=== PATIENT | female | born 1950 | race Caucasian/White ===

== ENCOUNTER 2017-11-21 15:48 | Outpatient (REF) | payer MEDICARE, OTHER, SELFPAY | END 2017-11-21 16:08 | LOC: NCHCN 15:48 | PROVIDERS: PCP Family Medicine; Visit Provider Nurse Practitioner Family | DX: R53.83 Other fatigue (principal) | CPT/HCPCS: 87077; 87086; 87186 ==

== ENCOUNTER 2018-02-03 16:44 | Outpatient (REF) | payer MEDICARE, OTHER, SELFPAY ==
[2018-02-03 23:06] LABS: TSH (W/Ref FT4) 2.78 uIU/mL (0.358-3.74)
== END 2018-02-03 17:04 ==
LOC: NCHCN 16:44
PROVIDERS: PCP Family Medicine; Visit Provider Nurse Practitioner Family
DX: E03.9 Hypothyroidism, unspecified (principal)
CPT/HCPCS: 84443

== ENCOUNTER 2018-06-11 18:52 | Outpatient (REF) | payer MEDICARE, OTHER, SELFPAY ==
[2018-06-11 22:02] LABS: HCT 38.6 % (36.0-46.0); HGB 12.8 g/dL (12.0-15.5); Mean Corp. HGB Concentration 33.2 g/dL (32.0-36.0); Mean Corpuscular Hemoglobin 28.8 pg (27.0-33.0); Mean Corpuscular Volume 86.9 fL (80-95); Platelet Count 251 x1000/uL (130-400); RBC 4.44 m/cumm (4.00-5.20); RBC Distribution Width 13.3 % (11.7-14.6); White Blood Cell Count 6.55 k/cumm (4.4-10.8)
[2018-06-11 22:08] LABS: BUN 41 mg/dL (7-18); CREATININE 1.84 mg/dL (0.55-1.02); Calcium 10.3 mg/dL (8.5-10.1); Chloride 102 mmol/L (98-107); Estimated GFR 27.12 (mL/min/1.73m2); Glucose 142 mg/dL (70-100); Potassium 4.4 mmol/L (3.5-5.1); Sodium 140 mmol/L (136-145)
== END 2018-06-11 19:12 ==
LOC: NCHCN 18:52
PROVIDERS: PCP Family Medicine; Visit Provider Family Medicine
DX: R53.83 Other fatigue (principal); I10 Essential (primary) hypertension
CPT/HCPCS: 80048; 85027

== ENCOUNTER 2019-01-22 22:07 | Outpatient (REF) | payer MEDICARE, OTHER, SELFPAY ==
[2019-01-22 22:56] LABS: COMMENT (LAB VIEW ONLY) 96.25 mg/dL; Microalb ug/mg Crea 10.3 ug/mg Cr
== END 2019-01-22 22:27 ==
LOC: NCHCN 22:07
PROVIDERS: PCP Family Medicine; Visit Provider Family Medicine
DX: E11.9 Type 2 diabetes mellitus without complications (principal)
CPT/HCPCS: 82043; 82570

== ENCOUNTER 2019-02-23 12:00 | Outpatient (REF) | payer MEDICARE, OTHER, SELFPAY ==
[2019-02-23 21:32] LABS: Iron 105 ug/dL (50-170)
[2019-02-23 22:01] LABS: ALT 23 U/L (14-59); AST 26 U/L (15-37); Albumin 3.8 g/dL (3.4-5.0); Alkaline Phosphatase 64 U/L (46-116); Anion Gap 11.4 mmol/L (3-11); BUN 44 mg/dL (7-18); Bilirubin, Total 0.5 mg/dL (0.2-1.0); CO2 27.6 mmol/L (21.0-32.0); CREATININE 2.09 mg/dL (0.55-1.02); Calcium 9.9 mg/dL (8.5-10.1); Chloride 105 mmol/L (98-107); Estimated GFR 23.41 (mL/min/1.73m2); Ferritin 144 ng/mL (8-252); Glucose 107 mg/dL (74-106); Magnesium 1.3 mg/dL (1.8-2.4); Potassium 4.7 mmol/L (3.5-5.1); Sodium 144 mmol/L (136-145); TSH (W/Ref FT4) 2.75 uIU/mL (0.36-3.74); Total Protein 7.2 g/dL (6.4-8.2)
== END 2019-02-23 12:20 ==
LOC: NCHCN 12:00
PROVIDERS: PCP Family Medicine; Visit Provider Family Medicine
DX: N18.4 Chronic kidney disease, stage 4 (severe) (principal); E66.01 Morbid (severe) obesity due to excess calories; R25.2 Cramp and spasm; M17.0 Bilateral primary osteoarthritis of knee; E83.52 Hypercalcemia; E03.9 Hypothyroidism, unspecified
CPT/HCPCS: 80053; 82728; 83540; 83735; 84443

== ENCOUNTER 2019-03-16 22:40 | Outpatient (REF) | payer MEDICARE, OTHER, SELFPAY ==
[2019-03-16 23:05] LABS: Magnesium 1.4 mg/dL (1.8-2.4)
== END 2019-03-16 23:00 ==
LOC: NCHCN 22:40
PROVIDERS: PCP Family Medicine; Visit Provider Family Medicine
DX: E83.42 Hypomagnesemia (principal)
CPT/HCPCS: 83735

== ENCOUNTER 2019-04-22 12:22 | Outpatient (REF) | payer MEDICARE, OTHER, SELFPAY | END 2019-04-22 12:42 | LOC: NCHCN 12:22 | PROVIDERS: PCP Family Medicine; Visit Provider Family Medicine | DX: E83.42 Hypomagnesemia (principal) | CPT/HCPCS: 83735 ==

== ENCOUNTER 2019-09-15 20:41 | Outpatient (REF) | payer MEDICARE, OTHER, SELFPAY ==
[2019-09-15 21:18] LABS: Anion Gap 8.3 mmol/L (3-11); BUN 48 mg/dL (7-18); CO2 28.7 mmol/L (21.0-32.0); CREATININE 2.02 mg/dL (0.55-1.02); Calcium 9.4 mg/dL (8.5-10.1); Chloride 105 mmol/L (98-107); Estimated GFR 24.28 (mL/min/1.73m2); Glucose 184 mg/dL (74-106); Magnesium 1.5 mg/dL (1.8-2.4); Potassium 4.9 mmol/L (3.5-5.1); Sodium 142 mmol/L (136-145)
== END 2019-09-15 21:01 ==
LOC: NCHCN 20:41
PROVIDERS: PCP Family Medicine; Visit Provider Family Medicine
DX: E83.42 Hypomagnesemia (principal); E11.9 Type 2 diabetes mellitus without complications
CPT/HCPCS: 80048; 83735

== ENCOUNTER 2019-12-15 12:37 | Outpatient (REF) | payer MEDICARE, OTHER, SELFPAY ==
[2019-12-15 22:06] LABS: Magnesium 1.6 mg/dL (1.8-2.4); PHOSPHORUS 4.1 mg/dL (2.6-4.7); TSH 2.18 uIU/mL (0.36-3.74)
== END 2019-12-15 12:57 ==
LOC: NCHCN 12:37
PROVIDERS: PCP Family Medicine; Visit Provider Family Medicine
DX: E11.8 Type 2 diabetes mellitus with unspecified complications (principal); E83.42 Hypomagnesemia; N18.4 Chronic kidney disease, stage 4 (severe); E03.9 Hypothyroidism, unspecified
CPT/HCPCS: 83735; 84100; 84443

== ENCOUNTER 2020-03-15 19:10 | Outpatient (REF) | payer MEDICARE, OTHER, SELFPAY ==
[2020-03-15 22:00] LABS: COMMENT (LAB VIEW ONLY) 161.83 mg/dL; Microalb ug/mg Crea 4.1 ug/mg Cr
== END 2020-03-15 19:30 ==
LOC: NCHCN 19:10
PROVIDERS: PCP Family Medicine; Visit Provider Family Medicine
DX: E11.8 Type 2 diabetes mellitus with unspecified complications (principal)
CPT/HCPCS: 82043; 82570

== ENCOUNTER 2020-11-01 22:21 | Outpatient (REF) | payer MEDICARE, SELFPAY ==
[2020-11-01 21:35] LABS: ALT 26 U/L (14-59); AST 25 U/L (15-37); Albumin 3.7 g/dL (3.4-5.0); Alkaline Phosphatase 73 U/L (46-116); Anion Gap 11.8 mmol/L (3-11); BUN 41 mg/dL (7-18); Bilirubin, Total 0.5 mg/dL (0.2-1.0); CO2 26.2 mmol/L (21.0-32.0); Calculated LDL 41 mg/dL (<100); Chloride 106 mmol/L (98-107); Cholesterol 116 mg/dL (<200); Estimated GFR 24.49 (mL/min/1.73m2); Glucose 82 mg/dL (74-106); HDL Cholesterol 33 mg/dL (40-60); Potassium 4.8 mmol/L (3.5-5.1); Sodium 144 mmol/L (136-145); TSH 1.59 uIU/mL (0.36-3.74); Triglyceride 211 mg/dL (<150)
== END 2020-11-01 22:22 | disposition home or self-care (01) ==
LOC: NCHCN 22:21
PROVIDERS: PCP Family Medicine; Visit Provider Family Medicine
DX: Z00.8 Encounter for other general examination (principal); E11.8 Type 2 diabetes mellitus with unspecified complications; E03.9 Hypothyroidism, unspecified; E83.42 Hypomagnesemia; E78.5 Hyperlipidemia, unspecified
CPT/HCPCS: 80053; 80061; 84443

== ENCOUNTER 2021-04-28 16:40 | Outpatient (REF) | payer MEDICARE, OTHER, SELFPAY ==
[2021-04-28 21:49] LABS: Anion Gap 12.4 mmol/L (3-11); BUN 45 mg/dL (7-18); CO2 22.6 mmol/L (21.0-32.0); CREATININE 2.7 mg/dL (0.55-1.02); Calcium 9.6 mg/dL (8.5-10.1); Chloride 100 mmol/L (98-107); Estimated GFR 17.27 (mL/min/1.73m2); Glucose 235 mg/dL (74-106); Potassium 5.4 mmol/L (3.5-5.1); Sodium 135 mmol/L (136-145)
== END 2021-04-28 16:41 | disposition home or self-care (01) ==
LOC: NCHCN 16:40
PROVIDERS: PCP Family Medicine; Visit Provider Nurse Practitioner Family
DX: E11.8 Type 2 diabetes mellitus with unspecified complications (principal)
CPT/HCPCS: 80048

== ENCOUNTER 2021-08-01 18:45 | Outpatient (REF) | payer MEDICARE, OTHER, SELFPAY ==
[2021-08-01 22:34] LABS: COMMENT (LAB VIEW ONLY) 125.61 mg/dL; Microalb ug/mg Crea 4.9 ug/mg Cr
== END 2021-08-01 18:46 | disposition home or self-care (01) ==
LOC: NCHCN 18:45
PROVIDERS: PCP Family Medicine; Visit Provider Family Medicine
DX: E11.8 Type 2 diabetes mellitus with unspecified complications (principal)
CPT/HCPCS: 82043; 82570

== ENCOUNTER 2021-09-22 18:22 | Outpatient (REF) | payer MEDICARE, OTHER, SELFPAY ==
[2021-09-22 17:49] LABS: BUN 43 mg/dL (7-18); CREATININE 2.1 mg/dL (0.55-1.02); Calcium 9.7 mg/dL (8.5-10.1); Calculated LDL 59 mg/dL (<100); Chloride 104 mmol/L (98-107); Cholesterol 133 mg/dL (<200); Estimated GFR 23.09 (mL/min/1.73m2); Glucose 114 mg/dL (74-106); HDL Cholesterol 37 mg/dL (40-60); Potassium 4.7 mmol/L (3.5-5.1); Sodium 141 mmol/L (136-145); TSH (W/Ref FT4) 2.77 uIU/mL (0.36-3.74); Triglyceride 189 mg/dL (<150); Vitamin B12 437 pg/mL (193-986)
[2021-09-25 06:01] LABS: Vitamin D 25 Total 35.3 ng/mL (30-100)
== END 2021-09-22 18:23 | disposition home or self-care (01) ==
LOC: LBN 18:22
PROVIDERS: PCP Family Medicine; Visit Provider Nurse Practitioner Family
DX: E11.65 Type 2 diabetes mellitus with hyperglycemia (principal); N18.4 Chronic kidney disease, stage 4 (severe); E11.22 Type 2 diabetes mellitus with diabetic chronic kidney disease; E56.9 Vitamin deficiency, unspecified
CPT/HCPCS: 80048; 80061; 82306; 82607; 84443

== ENCOUNTER 2022-02-02 15:10 | Outpatient (REF) | payer MEDICARE, OTHER, SELFPAY ==
[2022-02-02 15:58] LABS: HCT 36.2 % (36.0-46.0); HGB 11.8 g/dL (11.2-15.7); MCH 29.2 pg (27.0-33.0); MCHC 32.6 % (32.0-36.0); MCV 90 fL (80-95); MPV 10.9 fL (8.0-11.0); Platelet Count 220 10^3/uL (130-400); RBC 4.04 10^6/uL (3.93-5.22); RDW 13.6 % (11.7-14.6); WBC 5.81 10^3/uL (4.4-10.8)
[2022-02-02 17:05] LABS: ALT 25 U/L (14-59); AST 31 U/L (15-37); Albumin 3.6 g/dL (3.4-5.0); Alkaline Phosphatase 85 U/L (46-116); Anion Gap 8.4 mmol/L (3-11); BUN 41 mg/dL (7-18); Bilirubin, Total 0.6 mg/dL (0.2-1.0); CO2 28.6 mmol/L (21.0-32.0); COMMENT (LAB VIEW ONLY) 139.92 mg/dL; Calcium 9.5 mg/dL (8.5-10.1); Calculated LDL 54 mg/dL (<100); Chloride 104 mmol/L (98-107); Cholesterol 132 mg/dL (<200); Estimated GFR 25.89 (mL/min/1.73m2); Glucose 179 mg/dL (74-106); HDL Cholesterol 44 mg/dL (40-60); Potassium 4.1 mmol/L (3.5-5.1); Sodium 141 mmol/L (136-145); Total Protein 7.5 g/dL (6.4-8.2); Triglyceride 174 mg/dL (<150)
[2022-02-02 17:24] LABS: PHOSPHORUS 4.2 mg/dL (2.6-4.7)
[2022-02-05 08:35] LABS: Parathyroid Hormone,Intact 26 pg/mL (19-88)
== END 2022-02-02 15:11 | disposition home or self-care (01) ==
LOC: LBN 15:10
PROVIDERS: PCP Family Medicine; Visit Provider Nurse Practitioner Family
DX: E11.65 Type 2 diabetes mellitus with hyperglycemia (principal); N18.32 Chronic kidney disease, stage 3b; E11.21 Type 2 diabetes mellitus with diabetic nephropathy
CPT/HCPCS: 80053; 80061; 80069; 85027; 82043; 82570; 83970

== ENCOUNTER 2022-06-29 22:03 | Outpatient (REF) | payer MEDICARE, OTHER, SELFPAY ==
[2022-06-29 22:39] LABS: Hemoglobin A1C 6.7 % (<5.7)
[2022-06-29 22:48] LABS: COMMENT (LAB VIEW ONLY) 165.47 mg/dL; Microalb ug/mg Crea 4.5 ug/mg Cr
[2022-06-29 22:49] LABS: TSH (W/Ref FT4) 1.43 uIU/mL (0.36-3.74)
== END 2022-06-29 22:04 | disposition home or self-care (01) ==
LOC: NCHCN 22:03
PROVIDERS: PCP Family Medicine; Visit Provider Family Medicine
DX: E11.65 Type 2 diabetes mellitus with hyperglycemia (principal); Z79.4 Long term (current) use of insulin; E03.9 Hypothyroidism, unspecified
CPT/HCPCS: 82043; 82570; 83036; 84443

== ENCOUNTER 2022-07-24 13:26 | Outpatient (REF) | payer MEDICARE, OTHER, SELFPAY ==
[2022-07-24 20:36] LABS: HGB 12.4 g/dL (11.2-15.7); MCH 28.9 pg (27.0-33.0); MCHC 32.6 % (32.0-36.0); MCV 89 fL (80-95); Platelet Count 263 10^3/uL (130-400); RBC 4.29 10^6/uL (3.93-5.22); RDW 13.7 % (11.7-14.6); RDW-SD 44.9 fL; WBC 7.04 10^3/uL (4.4-10.8)
[2022-07-24 20:55] LABS: Albumin 3.8 g/dL (3.4-5.0); Anion Gap 9.4 mmol/L (3-11); BUN 50 mg/dL (7-18); CO2 26.6 mmol/L (21.0-32.0); Calcium 9.4 mg/dL (8.5-10.1); Chloride 106 mmol/L (98-107); Estimated GFR 25.73 (mL/min/1.73m2); Glucose 73 mg/dL (74-106); Potassium 4.4 mmol/L (3.5-5.1); Sodium 142 mmol/L (136-145)
[2022-07-24 21:12] LABS: COMMENT (LAB VIEW ONLY) 93.07 mg/dL; PROTEIN 17.3 mg/dL; Prot/Crea Ur Ratio 0.18
[2022-07-24 21:15] LABS: Bilirubin Negative (Negative); Blood Negative (Negative); Clarity Clear (Clear); Glucose Negative (Negative); Ketones Negative (Negative); Leukocyte Esterase Small (Negative); Nitrite Negative (Negative); Specific Gravity 1.015 (1.005-1.025); Urobilinogen 0.2 mg/dL (Up to 0.2); pH 5.5 (5-8)
[2022-07-24 22:16] LABS: PHOSPHORUS 3.5 mg/dL (2.6-4.7)
[2022-07-24 23:00] LABS: Vitamin D 25 Total 43.4 ng/mL (30-100)
[2022-07-25 20:39] LABS: Parathyroid Hormone,Intact 50 pg/mL (19-88)
== END 2022-07-24 13:27 | disposition home or self-care (01) ==
LOC: LBN 13:26
PROVIDERS: PCP Family Medicine; Visit Provider Internal Medicine
DX: N18.4 Chronic kidney disease, stage 4 (severe) (principal); E11.21 Type 2 diabetes mellitus with diabetic nephropathy; E83.9 Disorder of mineral metabolism, unspecified; M89.8X8 Other specified disorders of bone, other site; Z79.899 Other long term (current) drug therapy
CPT/HCPCS: 80069; 82306; 85027; 81003; 82565; 83970; 84156

== ENCOUNTER 2022-10-10 15:47 | Outpatient (REF) | payer MEDICARE, OTHER, SELFPAY | END 2022-10-10 15:48 | disposition home or self-care (01) | LOC: NCHCN 15:47 | PROVIDERS: PCP Family Medicine; Visit Provider Family Medicine | DX: M10.9 Gout, unspecified (principal) | CPT/HCPCS: 84550 ==

== ENCOUNTER 2022-12-24 18:47 | Outpatient (REF) | payer MEDICARE, OTHER, SELFPAY | END 2022-12-24 18:48 | disposition home or self-care (01) | LOC: NCHCN 18:47 | PROVIDERS: PCP Family Medicine; Visit Provider Family Medicine | DX: M10.00 Idiopathic gout, unspecified site (principal) | CPT/HCPCS: 84550 ==

== ENCOUNTER 2023-03-01 12:23 | Outpatient (REF) | payer MEDICARE, OTHER, SELFPAY ==
--- OUTSIDE RECORDS SUMMARY | 2023-03-01 12:24 | XMS_ITS | CCD ---
Author Name Unknown Address [address] [place] [address] [id number] Organization Unknown Address [address] [place] [address] [phone] Care Team Providers Care Claims Vice President Name Role Phone RUSTAM GONG Buzz Attending Physician [phone] Vital Signs Unknown or Not Available. Allergies Allergy Code Allergy Type Reaction Status AMPICILLIN 956970 Drug allergy Nausea, Vomiting Active CILLIN FAMILY VOMITING {Clin ical monitoring unavailable} 0 Drug allergy Nausea, Vomiting Active Raw Tomato {Clinical monitor ing unavailable} 0 Drug allergy Active Procedures Unknown or Not Available. History of Immunizations Unknown or Not Available. Problems Problem Code Start Date Resolved Date Status Diabetes 09584538 Active Hypertension 99660424 Active CKD 362301259 Active Neuropathy 051564327 Active Infection of finger 931621869 Activ e Results Unknown or Not Available. Active Medications Unknown or Not Available. Medications Administered During Visit Unknown or Not Available. Encounters Encounter Diagnosis Diagnosis Code Start Date Encounter for other specified aftercare [id number] 12/18/2022 Social History Smoking Status Code Start Date End Date Never smoker 024869835 Patient Decision Aids Unknown or Not Available. Discharge Instructions You were admitted to [facility] on 12/18/2022 10:28 with a principal diagnosis of Encounter for other specified aftercare You were discharged from [facility] on 12/18/2022 15:29 Should you have any questions prior to discharge, please contact a member of your healthcare team. If you have left the hospital and have any questions, please contact your primary care physician. Chief Complaint and Reason For Visit Unknown or Not Available. Function Status Unknown or Not Available. Plan of Care Unknown or Not Available. Referral/Transition of Care Unknown or Not Available.
--- OUTSIDE RECORDS SUMMARY | 2023-03-01 12:25 | XMS_ITS | CCD ---
Author Name Unknown Address [address] [place] [address] [phone] Organization Unknown Address [address] [place] [address] [phone] Care Team Providers Care Collection Clerk Name Role Phone ISMAEL FIGUEROA Attending Physician [phone] ISMAEL FIGUEROA Rounding (Secondary) Physic gayla [phone] Vital Signs Unknown or Not Available. Allergies Allergy Code Allergy Type Reaction Status AMPICILLIN 605106 Drug allergy Nausea, Vomiting Active CILLIN FAMILY VOMITING {Clin ical monitoring unavailable} 0 Drug allergy Nausea, Vomiting Active Raw Tomato {Clinical monitor ing unavailable} 0 Drug allergy Active Procedures Unknown or Not Available. History of Immunizations Unknown or Not Available. Problems Problem Code Start Date Resolved Date Status Diabetes 36295160 Active Hypertension 92140813 Active CKD 906164796 Active Neuropathy 559794370 Active Infection of finger 962823874 Activ e Results Unknown or Not Available. Active Medications Unknown or Not Available. Medications Administered During Visit Unknown or Not Available. Encounters Encounter Diagnosis Diagnosis Code Start Date Gout [id number] 10/08/2022 Social History Smoking Status Code Start Date End Date Never smoker 603390240 Patient Decision Aids Unknown or Not Available. Discharge Instructions You were admitted to [facility] on 10/08/2022 09:58 with a principal diagnosis of Gout You were discharged from [facility] on 10/08/2022 00:00 Should you have any questions prior to [...]
--- OUTSIDE RECORDS SUMMARY | 2023-03-01 12:25 | XMS_ITS | CCD ---
Author Name Unknown Address [address] [place] [address] [id number] Organization Unknown Address [address] [place] [address] [phone] Care Team Providers Care Site Reliability Engineer Name Role Phone ALINA MELCHOR Attending Physician [phone] ALINA MELCHOR Rounding (Secondary) Physician [phone] Vital Signs Unknown or Not Available. Allergies Allergy Code Allergy Type Reaction Status AMPICILLIN 514352 Drug allergy Nausea, Vomiting Active CILLIN FAMILY VOMITING {Clin ical monitoring unavailable} 0 Drug allergy Nausea, Vomiting Active Raw Tomato {Clinical monitor ing unavailable} 0 Drug allergy Active Procedures Unknown or Not Available. History of Immunizations Unknown or Not Available. Problems Problem Code Start Date Resolved Date Status Diabetes 37174459 Active Hypertension 91382186 Active CKD 422564868 Active Neuropathy 131220423 Active Infection of finger 439324281 Activ e Results Unknown or Not Available. Active Medications Unknown or Not Available. Medications Administered During Visit Unknown or Not Available. Encounters Encounter Diagnosis Diagnosis Code Start Date Idiopathic osteoarthritis [id number] 2022 Social History Smoking Status Code Start Date End Date Never smoker 553530870 Patient Decision Aids Unknown or Not Available. Discharge Instructions You were admitted to [facility] on 10/31/2022 11:28 with a principal diagnosis of Primary osteoarthritis, right ankle and foot You were discharged from [facility] on 10/31/2022 11:28 Should you have any questions prior to [...]
--- OUTSIDE RECORDS SUMMARY | 2023-03-01 12:25 | XMS_ITS | CCD ---
Author Name Unknown Address [address] [place] [address] [id number] Organization Unknown Address [address] [place] [address] [phone] Care Team Providers Care Miniature Model Maker Name Role Phone JEFFREYLOUISE Gerber Attending Physician [phone] Vital Signs Unknown or Not Available. Allergies Allergy Code Allergy Type Reaction Status AMPICILLIN 941862 Drug allergy Nausea, Vomiting Active CILLIN FAMILY VOMITING {Clin ical monitoring unavailable} 0 Drug allergy Nausea, Vomiting Active Raw Tomato {Clinical monitor ing unavailable} 0 Drug allergy Active Procedures Unknown or Not Available. History of Immunizations Unknown or Not Available. Problems Problem Code Start Date Resolved Date Status Diabetes 94036253 Active Hypertension 77453036 Active CKD 626541970 Active Neuropathy 458484455 Active Infection of finger 027930774 Activ e Obesity 861274262 09/19/2022 Resolved Hypercholesterolemia 01310672 09/19/2022 Reso lved HTN 60676506 09/19/2022 Resolved Chronic pain syndrome 346941713 09/19/2022 Res olved Restless legs 58414451 09/19/2022 Resolved Lumbar radiculopathy 150054927 09/19/2022 Reso lved Cervicalgia 62954493 09/19/2022 Resolved Anxiety 87720012 09/19/2022 Resolved GERD 210192215 09/19/2022 Resolved Dupuytrens contracture 446677556 09/19/2022 Re solved Bilateral carpal tunnel syndrome 13952233660121788 09/19/2022 Resolved DJD 887438073 09/19/2022 Resolved Hypothyroidism 40088662 09/19/2022 Resolved Diabetes 2 27937841 09/19/2022 Resolved HLD 93390133 09/19/2022 Resolved CKD 115521450 09/19/2022 Resolved Results Unknown or Not Available. Active Medications Unknown or Not Available. Medications Administered During Visit Unknown or Not Available. Encounters Encounter Diagnosis Diagnosis Code Start Date Cellulitis of right finger [id number] 09/19 Social History Smoking Status Code Start Date End Date Never smoker 055656258 Patient Decision Aids Unknown or Not Available. Discharge Instructions You were admitted to on 09/19/2022 00:12 with a principal diagnosis of Cellulitis of right finger You were discharged from on 09/23/2022 00:13 Should you have any questions prior to [...]
--- OUTSIDE RECORDS SUMMARY | 2023-03-01 12:25 | XMS_ITS | CCD ---
Author Name Unknown Address [address] [place] [address] [id number] Organization Unknown Address [address] [place] [address] [phone] Care Team Providers Care Eating Disorder Psychologist Name Role Phone WILLIAM ZAVALA Attending Physician [phone] Vital Signs Unknown or Not Available. Allergies Allergy Code Allergy Type Reaction Status AMPICILLIN 835410 Drug allergy Nausea, Vomiting Active CILLIN FAMILY VOMITING {Clin ical monitoring unavailable} 0 Drug allergy Nausea, Vomiting Active Procedures Unknown or Not Available. History of Immunizations Unknown or Not Available. Problems Problem Code Start Date Resolved Date Status Diabetes 87992827 Active Hypertension 89354407 Active CKD 472465042 Active Neuropathy 757756114 Active Infection of finger 375926613 Activ e Obesity 392148740 09/19/2022 Resolved Hypercholesterolemia 51759111 09/19/2022 Reso lved HTN 63212453 09/19/2022 Resolved Chronic pain syndrome 132553668 09/19/2022 Res olved Restless legs 40920087 09/19/2022 Resolved Lumbar radiculopathy 627320277 09/19/2022 Reso lved Cervicalgia 70756906 09/19/2022 Resolved Anxiety 48022431 09/19/2022 Resolved GERD 629160966 09/19/2022 Resolved Dupuytrens contracture 690590639 09/19/2022 Re solved Bilateral carpal tunnel syndrome 19010424962258684 09/19/2022 Resolved DJD 830357412 09/19/2022 Resolved Hypothyroidism 05192233 09/19/2022 Resolved Diabetes 2 89244462 09/19/2022 Resolved HLD 10088205 09/19/2022 Resolved CKD 185395501 09/19/2022 Resolved Results Unknown or Not Available. Active Medications Unknown or Not Available. Medications Administered During Visit Unknown or Not Available. Encounters Encounter Diagnosis Diagnosis Code Start Date Cellulitis of right finger I38707 09/19 Social History Smoking Status Code Start Date End Date Never smoker 152248646 Patient Decision Aids Unknown or Not Available. Discharge Instructions You were admitted to [facility] on 09/19/2022 18:32 with a principal diagnosis of Cellulitis of right finger You were discharged from [facility] on 09/19/2022 23:05 Should you have any questions prior to [...]
--- OUTSIDE RECORDS SUMMARY | 2023-03-01 12:25 | XMS_ITS | CCD ---
Author Name Unknown Address [address] [place] [address] [phone] Organization Unknown Address [address] [place] [address] [phone] Care Team Providers Care Seal Skinner Name Role Phone TOMAS IBARRA Attending Physician [phone] TOMAS IBARRA Rounding (Secondary) Physician [phone] Vital Signs Unknown or Not Available. Allergies Allergy Code Allergy Type Reaction Status AMPICILLIN 454694 Drug allergy Nausea, Vomiting Active CILLIN FAMILY VOMITING {Clin ical monitoring unavailable} 0 Drug allergy Nausea, Vomiting Active Raw Tomato {Clinical monitor ing unavailable} 0 Drug allergy Active Procedures Unknown or Not Available. History of Immunizations Unknown or Not Available. Problems Problem Code Start Date Resolved Date Status Diabetes 89327029 Active Hypertension 01492867 Active CKD 323924883 Active Neuropathy 149548359 Active Infection of finger 084820044 Activ e Results Unknown or Not Available. Active Medications Unknown or Not Available. Medications Administered During Visit Unknown or Not Available. Encounters Encounter Diagnosis Diagnosis Code Start Date Follow-up orthopedic assessment 186019282 09/27/2022 Social History Smoking Status Code Start Date End Date Never smoker 081304598 Patient Decision Aids Unknown or Not Available. Discharge Instructions You were admitted to [facility] on 09/27/2022 12:55 with a principal diagnosis of Encounter for other orthopedic aftercare You were discharged from [facility] on 09/27/2022 00:00 Should you have any questions prior [...]
--- OUTSIDE RECORDS SUMMARY | 2023-03-01 12:25 | XMS_ITS | CCD ---
Author Name Unknown Address [address] [place] [address] [phone] Organization Unknown Address [address] [place] [address] [phone] Care Team Providers Care Arbor End Mainspring Former Name Role Phone RUSTAM GONG Buzz Attending Physician [phone] Vital Signs Unknown or Not Available. Allergies Allergy Code Allergy Type Reaction Status AMPICILLIN 295281 Drug allergy Nausea, Vomiting Active CILLIN FAMILY VOMITING {Clin ical monitoring unavailable} 0 Drug allergy Nausea, Vomiting Active Raw Tomato {Clinical monitor ing unavailable} 0 Drug allergy Active Procedures Unknown or Not Available. History of Immunizations Unknown or Not Available. Problems Problem Code Start Date Resolved Date Status Diabetes 13051244 Active Hypertension 15663784 Active CKD 553895421 Active Neuropathy 150056525 Active Infection of finger 532062072 Activ e Results Unknown or Not Available. Active Medications Unknown or Not Available. Medications Administered During Visit Unknown or Not Available. Encounters Encounter Diagnosis Diagnosis Code Start Date Encounter for other specified aftercare Z5189 10/04/2022 Social History Smoking Status Code Start Date End Date Never smoker 015898159 Patient Decision Aids Unknown or Not Available. Discharge Instructions You were admitted to [facility] on 10/04/2022 15:12 with a principal diagnosis of Encounter for other specified aftercare You were discharged from [facility] on 10/04/2022 11:03 Should you have any questions prior to [...]
--- OUTSIDE RECORDS SUMMARY | 2023-03-01 12:26 | XMS_ITS | CCD ---
Author Name Unknown Address [address] [place] [address] [phone] Organization Unknown Address [address] [place] [address] [phone] Care Team Providers Care Staker Surveying Name Role Phone ISMAEL FIGUEROA Attending Physician [phone] Er Physician [phone] WILLIAM ZAVALA (Secondary) Physician [phone] LEAH Chopra Registered Nurse [phone] SOO Jean-Baptiste Registered Nurse [phone] Vital Signs Vital Sign Value Unit Date/Time Recent/Initial ? BMI (Body Mass Index) 46.07 kg/m^2 09/19/2022 18: 36 Initial VS Weight Measured 260 lbs 09/19/2022 18:36 Ini tial VS Height 62.99 in 09/19/2022 18:36 Initial VS BSA (Body Surface Area) 2.29 m^2 09/19/2022 1 8:36 Initial VS BP Systolic 167 mmHg 09/19/2022 18:36 Initial VS BP Diastolic 85 mmHg 09/19/2022 18:36 Initia l VS Respiratory Rate 16 bpm 09/19/2022 18:36 In itial VS Heart Rate 72 bpm 09/19/2022 18:36 Initial VS O2 % BldC Oximetry 100 % 09/19/2022 18:36 Initial VS Body Temperature 36.5 degrees 09/19/2022 18:36 In itial VS BMI (Body Mass Index) 47.57 kg/m^2 09/19/2022 23: 50 Most Recent VS Weight Measured 260.1 lbs 09/19/2022 23:50 Mos t Recent VS Height 62 in 09/19/2022 23:50 Most Rec ent VS BSA (Body Surface Area) 2.27 m^2 09/19/2022 2 3:50 Most Recent VS BP Systolic 111 mmHg 09/23/2022 11:09 Most Re cent VS BP Diastolic 94 mmHg 09/23/2022 11:09 Most R ecent VS Respiratory Rate 22 bpm 09/23/2022 11:[address] Recent VS Heart Rate 51 bpm 09/23/2022 11:09 Most Rec ent VS O2 % BldC Oximetry 100 % 09/23/2022 11:09 Most Recent VS Body Temperature 35.8 degrees 09/23/2022 11:[address] Recent VS Allergies Allergy Code Allergy Type Reaction Status AMPICILLIN 885880 Drug allergy Nausea, Vomiting Active CILLIN FAMILY VOMITING {Clin ical monitoring unavailable} 0 Drug allergy Nausea, Vomiting Active Raw Tomato {Clinical monitor ing unavailable} 0 Drug allergy Active Procedures Procedure Code Procedure Type Date Excision of Right Finger Pha langeal Joint, Open Approach [id number] ICD-10 PCS 09/20/2022 Anesthesia, Open/Surg Arthro scopic/Endoscopic Proc, Distal Radius/Distal Ulna/Wrist/Hand; NOS 49410 CPT 09/20/2022 History of Immunizations Unknown or Not Available. Problems Problem Code Start Date Resolved Date Status Diabetes 21000000 Active Hypertension 88953939 Active CKD 871701137 Active Neuropathy 298973155 Active Infection of finger 001225648 Activ e Obesity 074001392 09/19/2022 Resolved Hypercholesterolemia 95306961 09/19/2022 Reso lved HTN 00859809 09/19/2022 Resolved Chronic pain syndrome 334314199 09/19/2022 Res olved Restless legs 52596285 09/19/2022 Resolved Lumbar radiculopathy 886127988 09/19/2022 Reso lved Cervicalgia 71291401 09/19/2022 Resolved Anxiety 80785524 09/19/2022 Resolved GERD 929463654 09/19/2022 Resolved Dupuytrens contracture 382027543 09/19/2022 Re solved Bilateral carpal tunnel syndrome 14506574849327362 09/19/2022 Resolved DJD 152335628 09/19/2022 Resolved Hypothyroidism 22203914 09/19/2022 Resolved Diabetes 2 01330896 09/19/2022 Resolved HLD 03803058 09/19/2022 Resolved CKD 822447208 09/19/2022 Resolved Results BASIC METABOLIC PANEL (BMP) - Collect Date/Time: 09/22/2022 10:58 Test Name Code Test Result Test Units Test Ref Rang e GLUCOSE 2345-7 325 mg/dL L=70 H=116 BUN 3094-0 38 mg/dL L=6 H=25 CREATININE 2160-0 2.01 mg/dL L=0.51 H=0.95 SODIUM SERUM 2951-2 136 mmol/L L=136 H=145 POTASSIUM SERUM 2823-3 4.2 mmol/L L=3.4 H=5 .2 CHLORIDE SERUM 2075-0 100 mmol/L L=96 H=110 CARBON DIOXIDE (CO2) 2028-9 27 mmol/L L=22 H=34 ANION GAP 67675-6 9.5 mmol/L CALCIUM SERUM 32579-0 9.5 mg/dL L=8.2 H=10. 2 AGE 72 years eGFR (non-Afr.Amer.) 53815-2 24 mL/min eGFR (Afr-Syrian) 96090-1 29 mL/min C REACTIVE PROTEIN HIGH SENS ITIVITY* - Collect Date/Time: 09/22/2022 10:58 Test Name Code Test Result Test Units Test Ref Rang e CRP-HIGH SENS. 17716-1 20.41 mg/L L=0.00 H=3 .00 CRP-HIGH SENS 76333-5 2.04 mg/dL L=0.00 H=0. 30 C REACTIVE PROTEIN HIGH SENS ITIVITY* - Collect Date/Time: 09/19/2022 19:25 Test Name Code Test Result Test Units Test Ref Rang e CRP-HIGH SENS. 90018-2 39.25 mg/L L=0.00 H=3 .00 CRP-HIGH SENS 02231-3 3.93 mg/dL L=0.00 H=0. 30 COMPREHENSIVE METABOLIC PANE L (CMP) - Collect Date/Time: 09/19/2022 19:25 Test Name Code Test Result Test Units Test Ref Rang e GLUCOSE 2345-7 224 mg/dL L=70 H=116 BUN 3094-0 24 mg/dL L=6 H=25 CREATININE 2160-0 1.65 mg/dL L=0.51 H=0.95 SODIUM SERUM 2951-2 136 mmol/L L=136 H=145 POTASSIUM SERUM 2823-3 3.6 mmol/L L=3.4 H=5 .2 CHLORIDE SERUM 2075-0 99 mmol/L L=96 H=110 CARBON DIOXIDE (CO2) 2028-9 27 mmol/L L=22 H=34 ANION GAP 55185-7 9.8 mmol/L CALCIUM SERUM 17076-3 9.3 mg/dL L=8.2 H=10. 2 BILIRUBIN TOTAL 1975-2 0.6 mg/dL L=0.0 H=1 .3 ALK. PHOS. 6768-6 100 U/L L=46 H=116 SGOT (AST) 1920-8 36 U/L L=15 H=37 SGPT (ALT) 1742-6 24 U/L L=12 H=78 TOTAL PROTEIN 2885-2 7.6 gm/dL L=6.0 H=8.0 ALBUMIN 1751-7 3.5 gm/dL L=3.4 H=5.0 AGE 72 years eGFR (non-Afr.Amer.) 38342-9 30 mL/min eGFR (Afr-Syrian) 91560-4 37 mL/min NOVA GLUCOSE FINGER HEEL CAP ILLARY - Collect Date/Time: 09/23/2022 11:38 Test Name Code Test Result Test Units Test Ref Rang e GLUCOSE CAP 56124-0 163 mg/dL L=70 H=116 NOVA GLUCOSE FINGER HEEL CAP ILLARY - Collect Date/Time: 09/23/2022 07:45 Test Name Code Test Result Test Units Test Ref Rang e GLUCOSE CAP 57735-7 100 mg/dL L=70 H=116 NOVA GLUCOSE FINGER HEEL CAP ILLARY - Collect Date/Time: 09/22/2022 20:48 Test Name Code Test Result Test Units Test Ref Rang e GLUCOSE CAP 20225-4 278 mg/dL L=70 H=116 NOVA GLUCOSE FINGER HEEL CAP ILLARY - Collect Date/Time: 09/22/2022 11:24 Test Name Code Test Result Test Units Test Ref Rang e GLUCOSE CAP 27526-1 303 mg/dL L=70 H=116 NOVA GLUCOSE FINGER HEEL CAP ILLARY - Collect Date/Time: 09/22/2022 08:21 Test Name Code Test Result Test Units Test Ref Rang e GLUCOSE CAP 99135-4 280 mg/dL L=70 H=116 NOVA GLUCOSE FINGER HEEL CAP ILLARY - Collect Date/Time: 09/21/2022 20:24 Test Name Code Test Result Test Units Test Ref Rang e GLUCOSE CAP 56330-3 385 mg/dL L=70 H=116 NOVA GLUCOSE FINGER HEEL CAP ILLARY - Collect Date/Time: 09/21/2022 16:26 Test Name Code Test Result Test Units Test Ref Rang e GLUCOSE CAP 67315-6 310 mg/dL L=70 H=116 NOVA GLUCOSE FINGER HEEL CAP ILLARY - Collect Date/Time: 09/21/2022 11:53 Test Name Code Test Result Test Units Test Ref Rang e GLUCOSE CAP 23312-3 284 mg/dL L=70 H=116 NOVA GLUCOSE FINGER HEEL CAP ILLARY - Collect Date/Time: 09/21/2022 07:47 Test Name Code Test Result Test Units Test Ref Rang e GLUCOSE CAP 42646-8 167 mg/dL L=70 H=116 NOVA GLUCOSE FINGER HEEL CAP ILLARY - Collect Date/Time: 09/20/2022 20:42 Test Name Code Test Result Test Units Test Ref Rang e GLUCOSE CAP 62769-2 194 mg/dL L=70 H=116 NOVA GLUCOSE FINGER HEEL CAP ILLARY - Collect Date/Time: 09/20/2022 20:10 Test Name Code Test Result Test Units Test Ref Rang e GLUCOSE CAP 75391-2 228 mg/dL L=70 H=116 NOVA GLUCOSE FINGER HEEL CAP ILLARY - Collect Date/Time: 09/20/2022 16:53 Test Name Code Test Result Test Units Test Ref Rang e GLUCOSE CAP 19977-5 229 mg/dL L=70 H=116 NOVA GLUCOSE FINGER HEEL CAP ILLARY - Collect Date/Time: 09/20/2022 11:35 Test Name Code Test Result Test Units Test Ref Rang e GLUCOSE CAP 67382-9 292 mg/dL L=70 H=116 NOVA GLUCOSE FINGER HEEL CAP ILLARY - Collect Date/Time: 09/20/2022 07:42 Test Name Code Test Result Test Units Test Ref Rang e GLUCOSE CAP 65843-4 77 mg/dL L=70 H=116 NOVA GLUCOSE FINGER HEEL CAP ILLARY - Collect Date/Time: 09/19/2022 23:07 Test Name Code Test Result Test Units Test Ref Rang e GLUCOSE CAP 55373-4 195 mg/dL L=70 H=116 NOVA GLUCOSE FINGER HEEL CAP ILLARY - Collect Date/Time: 09/19/2022 23:07 Test Name Code Test Result Test Units Test Ref Rang e GLUCOSE CAP 48021-7 195 mg/dL L=70 H=116 URIC ACID SERUM - Collect Da te/Time: 09/22/2022 10:58 Test Name Code Test Result Test Units Test Ref Rang e URIC ACID SERUM 3.8 mg/dL L=2.0 H=7 .0 VANCOMYCIN RANDOM* - Collect Date/Time: 09/21/2022 06:30 Test Name Code Test Result Test Units Test Ref Rang e VANCOMYCIN 20.9 ug/mL VANCOMYCIN RANDOM* - Collect Date/Time: 09/20/2022 12:30 Test Name Code Test Result Test Units Test Ref Rang e VANCOMYCIN 15.7 ug/mL CBC W/ DIFFERENTIAL* - Colle ct Date/Time: 09/22/2022 10:58 Test Name Code Test Result Test Units Test Ref Rang e WBC 6690-2 11.98 th/cmm L=5.00 H=10.00 NEUT % 83.6 % L=40.0 H=80.0 LYMPH % 11.5 % L=10.0 H=50.0 MONO % 03192-9 4.1 % L=2.0 H=12.0 EOS % 0.1 % L=0.0 H=8.0 BASO % 0.3 % L=0.0 H=3.0 IG % 2514-8 0.4 % L=0.0 H=1.1 NRBC % 82826-0 0.0 % L=0.0 H=0.0 NEUT abs count 751-8 10.0 th/cmm L=1.6 H=8. 4 LYMPH abs count 731-0 1.4 th/cmm L=1.5 H=4 .0 MONO abs count 742-7 0.5 th/cmm L=0.2 H=1. 0 EOS abs count 711-2 0.0 th/cmm L=0.0 H=0.5 BASO abs count 704-7 0.0 th/cmm L=0.0 H=0. 2 IG abs count 28306-9 0.1 th/cmm L=0.0 H=0.1 NRBC abs count 53539-1 0.0 mil/cmm L=0.0 H=0. 0 RBC 789-8 4.34 mil/cmm L=3.90 H=5.40 HEMOGLOBIN 718-7 12.4 gm/dL L=12.0 H=16.0 HEMATOCRIT 4544-3 38 % L=37 H=47 MCV 787-2 87 fL L=82 H=92 MCH 785-6 28.6 pg L=27.0 H=31.0 MCHC 786-4 32.8 % L=32.0 H=36.0 RDW-SD 788-0 41.7 fL L=39.0 H=49.0 PLATELET COUNT 777-3 291 th/cmm L=150 H=45 0 CBC W/ DIFFERENTIAL* - [facility] ct Date/Time: 09/19/2022 19:25 Test Name Code Test Result Test Units Test Ref Rang e WBC 6690-2 9.08 th/cmm L=5.00 H=10.00 NEUT % 68.5 % L=40.0 H=80.0 LYMPH % 20.6 % L=10.0 H=50.0 MONO % 37760-9 8.6 % L=2.0 H=12.0 EOS % 1.8 % L=0.0 H=8.0 BASO % 0.2 % L=0.0 H=3.0 IG % 2514-8 0.3 % L=0.0 H=1.1 NRBC % 58912-2 0.0 % L=0.0 H=0.0 NEUT abs count 751-8 6.2 th/cmm L=1.6 H=8. 4 LYMPH abs count 731-0 1.9 th/cmm L=1.5 H=4 .0 MONO abs count 742-7 0.8 th/cmm L=0.2 H=1. 0 EOS abs count 711-2 0.2 th/cmm L=0.0 H=0.5 BASO abs count 704-7 0.0 th/cmm L=0.0 H=0. 2 IG abs count 60770-1 0.0 th/cmm L=0.0 H=0.1 NRBC abs count 07388-2 0.0 mil/cmm L=0.0 H=0. 0 RBC 789-8 4.57 mil/cmm L=3.90 H=5.40 HEMOGLOBIN 718-7 12.8 gm/dL L=12.0 H=16.0 HEMATOCRIT 4544-3 40 % L=37 H=47 MCV 787-2 87 fL L=82 H=92 MCH 785-6 28.0 pg L=27.0 H=31.0 MCHC 786-4 32.2 % L=32.0 H=36.0 RDW-SD 788-0 42.3 fL L=39.0 H=49.0 PLATELET COUNT 777-3 236 th/cmm L=150 H=45 0 SED RATE* - Collect Date/Andrey e: 09/22/2022 10:58 Test Name Code Test Result Test Units Test Ref Rang e SED. RATE 4537-7 35 mm/hr L=0 H=30 SED RATE* - Collect Date/Andrey e: 09/19/2022 19:25 Test Name Code Test Result Test Units Test Ref Rang e SED. RATE 4537-7 34 mm/hr L=0 H=30 GRAM STAIN* - Collect Date/T willi: 09/20/2022 16:46 Test Name Code Test Result Test Units Test Ref Rang e SOURCE- Other N/A WBC s few N/A PREDOMINANT ORGANISM No bacteria seen N/A Active Medications Medication Code Dose Units Frequency Route Modificatio n Start Date/Time AMOXICILLIN/CLAV TABLET: 500MG/125MG 273630 1 TAB Q12H PO 09/23/19 12:48 INSULIN PEN LISPRO: 300UNITS/3ML 0765706 Unit(s) PRN SUBQ 023 18:03 PredniSONE TABLET: 20MG 966912 20 MG DAILY WITH FOOD PO 09/21/2022 18:02 DEXTROSE 50% SYRINGE: 25GM/50ML 516941 12.5 GM PRN IVP 0 09/19/2022 23:24 GLUCAGON INJ SDV: 1MG 085140 1 MG PRN IM 09/19/2022 22:54 ACETAMINOPHEN TABLET: 325MG 102915 325 MG PRN Q4H PO 2022 22:47 LACTATED RINGERS 1000ML 959396 CONT IV 09/19/2022 22:47 ~~ LACTATED RINGERS 1000ML 439394 7807 ML MILK OF MAGNESIA SUSP UD: 2400MG/30ML 798250 30 ML PRN BID PO 09/20/19 22:47 MORPHINE INJ SYRINGE: 2MG/ML 8934342 2 MG PRN Q4H IVP 09/01 22:47 ONDANSETRON INJ SDV: 4MG/2ML 3530581 4 MG PRN Q4H IVP 023 22:47 ONDANSETRON TABLET ORAL DISINTEGRAT: 4MG 018883 4 MG PRN Q4H PO 09/19/2022 22:47 OxyCODONE TABLET no apap added: 5mg 5630740 5 MG PRN Q4H PO 0 09/19/2022 22:47 ASPIRIN TABLET E.C.: 81MG 022568 81 MG DAILY PO 22:25 ATORVASTATIN TABLET: 40MG 483223 40 MG BEDTIME PO 023 22:25 CETIRIZINE TABLET: 10MG 4918256 10 MG DAILY PO 09/19/2022 22:25 GABAPENTIN CAPSULE: 300MG 845944 300 MG DAILY PO 09/19 22:25 GABAPENTIN CAPSULE: 300MG 134397 600 MG BEDTIME PO 09/19 22:25 LEVOTHYROXINE TABLET: 75MCG 386468 75 MCG DAILY PO 2022 22:25 TraMADol TABLET: 50MG 680542 50 MG DAILY PO 09/19/2022 22:25 TraMADol TABLET: 50MG 582149 100 MG BEDTIME PO 09/19/2022 22:25 Medications Administered During Visit Medication Dose Units Frequency Route Date/Time of Last Dose VANCOMYCIN IVPB PREMIX: 2GM/400ML 2 GM X1 IVPB 09/19/2022 20:47 PIPERACILLIN/TAZO IVPB: 3.375GM/100ML 3.375 GM X1 IVPB 09/20/19 20:05 LACTATED RINGERS 1000ML 100 ML CONT IV 09/19/2022 23:5 4 OxyCODONE TABLET no apap added: 5mg 5 MG PRN Q4H PO 09/23/2022 0 8:29 ACETAMINOPHEN TABLET: 325MG 325 MG PRN Q4H PO 09/23/2022 08:2 2 ATORVASTATIN TABLET: 40MG 40 MG BEDTIME PO 09/22/2022 20:5 3 CETIRIZINE TABLET: 10MG 10 MG DAILY PO 09/23/2022 08:2 8 GABAPENTIN CAPSULE: 300MG 300 MG DAILY PO 09/23/2022 08:2 2 INSULIN PEN LISPRO: 300UNITS/3ML 28 Unit(s) PRN SUBQ 09/20/2022 16:5 6 INSULIN PEN GLARGINE-YFGN: 300UNITS/3ML 45 UNITS BID SUBCUTANEOUSLY 09/21/2022 08 :24 LEVOTHYROXINE TABLET: 75MCG 75 MCG DAILY PO 09/23/2022 08:2 8 TraMADol TABLET: 50MG 50 MG DAILY PO 09/23/2022 08:33 ASPIRIN TABLET E.C.: 81MG 81 MG DAILY PO 09/23/2022 08:2 8 GABAPENTIN CAPSULE: 300MG 600 MG BEDTIME PO 09/22/2022 20:5 3 TraMADol TABLET: 50MG 100 MG BEDTIME PO 09/22/2022 20:53 PIPERACILLIN/TAZO IVPB: 3.375GM/100ML 3.375 GM Q6H IVPB 09/23/19 08:54 INSULIN MDV LISPRO: 1000UNITS/10ML 20 Unit(s) X1 SUBQ 09/20/2022 12 :54 VANCOMYCIN IVPB PREMIX: 1.25GM/250ML 1.25 GM Q24H IVPB 023 21:00 VANCOMYCIN LEVEL REMINDER TO NURSING 1 --- X1 --- 09/22/19 08:38 PredniSONE TABLET: 20MG 40 MG DAILY WITH FOOD PO 09/21/2022 0 8:37 INSULIN PEN LISPRO: 300UNITS/3ML 20 Unit(s) PRN SUBQ 09/21/2022 17:3 1 PredniSONE TABLET: 20MG 20 MG DAILY WITH FOOD PO 09/23/2022 0 8:22 INSULIN PEN GLARGINE-YFGN: 300UNITS/3ML 60 Unit(s) BID SUBQ 09/22/2022 20:5 8 INSULIN PEN LISPRO: 300UNITS/3ML 16 Unit(s) PRN SUBQ 09/23/2022 11:5 6 AMOXICILLIN/CLAV TABLET: 500MG/125MG 1 TAB Q12H PO 09/24/19 08:28 INSULIN PEN GLARGINE-YFGN: 300UNITS/3ML 35 Unit(s) X1 SUBQ 09/23/2022 08:3 3 Encounters Encounter Diagnosis Diagnosis Code Start Date Arthritis due to other bacteria, right hand M008 41 09/19/2022 Social History Smoking Status Code Start Date End Date Never smoker [id number] Patient Decision Aids Patient Decision Aid Acute Wounds Acute Wounds Patient Portal Access Wound Infection Wound Infection Wound Infection Discharge Instructions You were admitted to [facility] on 09/19/2022 22:59 with a principal diagnosis of Arthritis due to other bacteria, right hand You had the following procedures done:Excision of Right Finger Phalangeal Joint, Open ApproachAnesthesia, Open/Surg Arthroscopic/Endoscopic Proc, Distal Radius/Distal Ulna/Wrist/Hand; NOS You had the following tests done:NOVA GLUCOSE FINGER HEEL CAPILLARYNOVA GLUCOSE FINGER HEEL CAPILLARYNOVA GLUCOSE FINGER HEEL CAPILLARYNOVA GLUCOSE FINGER HEEL CAPILLARYBASIC METABOLIC PANEL (BMP)C REACTIVE PROTEIN HIGH SENSITIVITY*CBC W/ DIFFERENTIAL*SED RATE*URIC ACID SERUMNOVA GLUCOSE FINGER HEEL CAPILLARYNOVA GLUCOSE FINGER HEEL CAPILLARYNOVA GLUCOSE FINGER HEEL CAPILLARYNOVA GLUCOSE FINGER HEEL CAPILLARYNOVA GLUCOSE FINGER HEEL CAPILLARYVANCOMYCIN RANDOM*NOVA GLUCOSE FINGER HEEL CAPILLARYNOVA GLUCOSE FINGER HEEL CAPILLARYNOVA GLUCOSE FINGER HEEL CAPILLARYGRAM STAIN*VANCOMYCIN RANDOM*NOVA GLUCOSE FINGER HEEL CAPILLARYNOVA GLUCOSE FINGER HEEL CAPILLARYNOVA GLUCOSE FINGER HEEL CAPILLARYNOVA GLUCOSE FINGER HEEL CAPILLARYC REACTIVE PROTEIN HIGH SENSITIVITY*CBC W/ DIFFERENTIAL*COMPREHENSIVE METABOLIC PANEL (CMP)SED RATE* You were discharged from [facility] on 09/23/2022 15:12 Should you have any questions prior to discharge, please contact a member of your healthcare team. If you have left the hospital and have any questions, please contact your primary care physician. Chief Complaint and Reason For Visit Chief Complaint Date of Onset RIGHT FINGER PAINFUL RED SWOLLEN ICHY Function Status Unknown or Not Available. Plan of Care Unknown or Not Available. Referral/Transition of Care Unknown or Not Available.
--- OUTSIDE RECORDS SUMMARY | 2023-03-01 12:26 | XMS_ITS | CCD ---
Author Name Unknown Address [address] [place] [address] [phone] Organization Unknown Address [address] [place] [address] [phone] Care Team Providers Care Manager Education Name Role Phone RUSTAM GONG Buzz Attending Physician [phone] Vital Signs Unknown or Not Available. Allergies Allergy Code Allergy Type Reaction Status AMPICILLIN 869761 Drug allergy Nausea, Vomiting Active CILLIN FAMILY VOMITING {Clin ical monitoring unavailable} 0 Drug allergy Nausea, Vomiting Active Procedures Unknown or Not Available. History of Immunizations Unknown or Not Available. Problems Problem Code Start Date Resolved Date Status Diabetes 23645337 Active Hypertension 99295845 Active CKD 979892957 Active Neuropathy 099618878 Active Infection of finger 831971393 Activ e Obesity 820318623 09/19/2022 Resolved Hypercholesterolemia 73645785 09/19/2022 Reso lved HTN 92959886 09/19/2022 Resolved Chronic pain syndrome 484997102 09/19/2022 Res olved Restless legs 01192564 09/19/2022 Resolved Lumbar radiculopathy 759539835 09/19/2022 Reso lved Cervicalgia 62237913 09/19/2022 Resolved Anxiety 56937345 09/19/2022 Resolved GERD 075692827 09/19/2022 Resolved Dupuytrens contracture 600642569 09/19/2022 Re solved Bilateral carpal tunnel syndrome 40059182340650262 09/19/2022 Resolved DJD 483049900 09/19/2022 Resolved Hypothyroidism 17268785 09/19/2022 Resolved Diabetes 2 75374583 09/19/2022 Resolved HLD 88189396 09/19/2022 Resolved CKD 060451150 09/19/2022 Resolved Results Unknown or Not Available. Active Medications Unknown or Not Available. Medications Administered During Visit Unknown or Not Available. Encounters Encounter Diagnosis Diagnosis Code Start Date Aftercare [id number] 07/17/2022 Social History Smoking Status Code Start Date End Date Never smoker 542791252 Patient Decision Aids Unknown or Not Available. Discharge Instructions You were admitted to [facility] on 07/17/2022 08:58 with a principal diagnosis of Encounter for other specified aftercare You were discharged from [facility] on 07/17/2022 17:18 Should you have any questions prior to [...]
--- OUTSIDE RECORDS SUMMARY | 2023-03-01 12:26 | XMS_ITS | CCD ---
Author Name Unknown Address [address] [address] [phone] Organization Unknown Address [address] [address] [phone] Care Team Providers Care Rivet Spinner Name Role Phone LILIAN DENT Attending Physician [phone] LILIAN DENT Rounding (Secondary) Physician [phone] Vital Signs Unknown or Not Available. Allergies Allergy Code Allergy Type Reaction Status AMPICILLIN 802469 Drug allergy Nausea, Vomiting Active CILLIN FAMILY VOMITING {Clin ical monitoring unavailable} 0 Drug allergy Nausea, Vomiting Active Procedures Unknown or Not Available. History of Immunizations Unknown or Not Available. Problems Problem Code Start Date Resolved Date Status Diabetes 88596930 Active Hypertension 84758361 Active CKD 971196758 Active Neuropathy 430011515 Active Infection of finger 544072665 Activ e Obesity 650237099 09/19/2022 Resolved Hypercholesterolemia 80193758 09/19/2022 Reso lved HTN 38184646 09/19/2022 Resolved Chronic pain syndrome 786586133 09/19/2022 Res olved Restless legs 91343717 09/19/2022 Resolved Lumbar radiculopathy 345668454 09/19/2022 Reso lved Cervicalgia 39328751 09/19/2022 Resolved Anxiety 53175280 09/19/2022 Resolved GERD 827574580 09/19/2022 Resolved Dupuytrens contracture 771995174 09/19/2022 Re solved Bilateral carpal tunnel syndrome 30583614738524035 09/19/2022 Resolved DJD 812956515 09/19/2022 Resolved Hypothyroidism 31070818 09/19/2022 Resolved Diabetes 2 31926655 09/19/2022 Resolved HLD 59988513 09/19/2022 Resolved CKD 541776281 09/19/2022 Resolved Results Unknown or Not Available. Active Medications Unknown or Not Available. Medications Administered During Visit Unknown or Not Available. Encounters Encounter Diagnosis Diagnosis Code Start Date Idiopathic osteoarthritis [id number] 2022 Social History Smoking Status Code Start Date End Date Never smoker 364579851 Patient Decision Aids Unknown or Not Available. Discharge Instructions You were admitted to [facility] on 07/17/2022 10:40 with a principal diagnosis of Bilateral primary osteoarthritis of knee You were discharged from [facility] on 07/17/2022 00:00 Should you have any questions prior [...]
--- OUTSIDE RECORDS SUMMARY | 2023-03-01 12:26 | XMS_ITS | CCD ---
Author Name Unknown Address [address] [place] [address] [id number] Organization Unknown Address [address] [place] [address] [phone] Care Team Providers Care Territory Sales Professional Name Role Phone ALINA MELCHOR Attending Physician [phone] ALINA MELCHOR Rounding (Secondary) Physician [phone] Vital Signs Unknown or Not Available. Allergies Allergy Code Allergy Type Reaction Status AMPICILLIN 601120 Drug allergy Nausea, Vomiting Active CILLIN FAMILY VOMITING {Clin ical monitoring unavailable} 0 Drug allergy Nausea, Vomiting Active Procedures Unknown or Not Available. History of Immunizations Unknown or Not Available. Problems Problem Code Start Date Resolved Date Status Diabetes 37131869 Active Hypertension 28769534 Active CKD 415495014 Active Neuropathy 407825238 Active Infection of finger 526426640 Activ e Obesity 680527387 09/19/2022 Resolved Hypercholesterolemia 83724468 09/19/2022 Reso lved HTN 79449238 09/19/2022 Resolved Chronic pain syndrome 375002772 09/19/2022 Res olved Restless legs 54436063 09/19/2022 Resolved Lumbar radiculopathy 156594877 09/19/2022 Reso lved Cervicalgia 28831479 09/19/2022 Resolved Anxiety 90147546 09/19/2022 Resolved GERD 826296369 09/19/2022 Resolved Dupuytrens contracture 550394966 09/19/2022 Re solved Bilateral carpal tunnel syndrome 01156418183000445 09/19/2022 Resolved DJD 444569668 09/19/2022 Resolved Hypothyroidism 03595441 09/19/2022 Resolved Diabetes 2 81490210 09/19/2022 Resolved HLD 97487712 09/19/2022 Resolved CKD 963279434 09/19/2022 Resolved Results Unknown or Not Available. Active Medications Unknown or Not Available. Medications Administered During Visit Unknown or Not Available. Encounters Encounter Diagnosis Diagnosis Code Start Date Bone spur of right foot [id number] 08/09/19 Social History Smoking Status Code Start Date End Date Never smoker 557527311 Patient Decision Aids Unknown or Not Available. Discharge Instructions You were admitted to [facility] on 08/08/2022 00:00 with a principal diagnosis of Osteophyte, right foot You were discharged from [facility] on 08/08/2022 00:00 Should you have any questions prior [...]
--- OUTSIDE RECORDS SUMMARY | 2023-03-01 12:26 | XMS_ITS | CCD ---
Author Name Unknown Address [address] [place] [address] [id number] Organization Unknown Address [address] [place] [address] [phone] Care Team Providers Care Epic [facility] Name Role Phone RUSTAM GONG Buzz Attending Physician [phone] Vital Signs Unknown or Not Available. Allergies Allergy Code Allergy Type Reaction Status AMPICILLIN 984647 Drug allergy Nausea, Vomiting Active CILLIN FAMILY VOMITING {Clin ical monitoring unavailable} 0 Drug allergy Nausea, Vomiting Active Procedures Unknown or Not Available. History of Immunizations Unknown or Not Available. Problems Problem Code Start Date Resolved Date Status Diabetes 95713424 Active Hypertension 38279167 Active CKD 215209360 Active Neuropathy 968500863 Active Infection of finger 235437581 Activ e Obesity 305873889 09/19/2022 Resolved Hypercholesterolemia 55905914 09/19/2022 Reso lved HTN 46114723 09/19/2022 Resolved Chronic pain syndrome 977859454 09/19/2022 Res olved Restless legs 76554704 09/19/2022 Resolved Lumbar radiculopathy 662686730 09/19/2022 Reso lved Cervicalgia 56687395 09/19/2022 Resolved Anxiety 82767784 09/19/2022 Resolved GERD 093433136 09/19/2022 Resolved Dupuytrens contracture 985773613 09/19/2022 Re solved Bilateral carpal tunnel syndrome 73681627799743824 09/19/2022 Resolved DJD 430037898 09/19/2022 Resolved Hypothyroidism 43929766 09/19/2022 Resolved Diabetes 2 02823203 09/19/2022 Resolved HLD 32288893 09/19/2022 Resolved CKD 641855275 09/19/2022 Resolved Results Unknown or Not Available. Active Medications Unknown or Not Available. Medications Administered During Visit Unknown or Not Available. Encounters Encounter Diagnosis Diagnosis Code Start Date Screening mammography 83433387 07/05/2022 Social History Smoking Status Code Start Date End Date Never smoker 296677310 Patient Decision Aids Unknown or Not Available. Discharge Instructions You were admitted to [facility] on 07/05/2022 10:45 with a principal diagnosis of Encounter for screening mammogram for malignant neoplasm of breast You were discharged from [facility] on 07/05/2022 10:45 Should you have any questions prior to discharge, please contact a member of your healthcare team. If you have left the hospital and have any questions, please contact your primary care physician. Chief Complaint and Reason For Visit Chief Complaint Date of Onset SCREENING Function Status Unknown or Not Available. Plan of Care Unknown or Not Available. Referral/Transition of Care Unknown or Not Available.
--- OUTSIDE RECORDS SUMMARY | 2023-03-01 12:27 | XMS_ITS | CCD ---
Author Name Unknown Address [address] [place] [address] [id number] Organization Unknown Address [address] [place] [address] [phone] Care Team Providers Care Beach Attendant Name Role Phone RUSTAM GONG Buzz Attending Physician [phone] Vital Signs Unknown or Not Available. Allergies Allergy Code Allergy Type Reaction Status AMPICILLIN 598835 Drug allergy Nausea, Vomiting Active CILLIN FAMILY VOMITING {Clin ical monitoring unavailable} 0 Drug allergy Nausea, Vomiting Active Procedures Unknown or Not Available. History of Immunizations Unknown or Not Available. Problems Problem Code Start Date Resolved Date Status Diabetes 87580464 Active Hypertension 39683172 Active CKD 055761649 Active Neuropathy 139251703 Active Infection of finger 769186694 Activ e Obesity 522909830 09/19/2022 Resolved Hypercholesterolemia 11239964 09/19/2022 Reso lved HTN 19109097 09/19/2022 Resolved Chronic pain syndrome 348933958 09/19/2022 Res olved Restless legs 49578520 09/19/2022 Resolved Lumbar radiculopathy 575755877 09/19/2022 Reso lved Cervicalgia 18013892 09/19/2022 Resolved Anxiety 61360484 09/19/2022 Resolved GERD 673549619 09/19/2022 Resolved Dupuytrens contracture 749600395 09/19/2022 Re solved Bilateral carpal tunnel syndrome 80687448629654548 09/19/2022 Resolved DJD 030059494 09/19/2022 Resolved Hypothyroidism 02743865 09/19/2022 Resolved Diabetes 2 47690233 09/19/2022 Resolved HLD 38443498 09/19/2022 Resolved CKD 864800938 09/19/2022 Resolved Results Unknown or Not Available. Active Medications Unknown or Not Available. Medications Administered During Visit Unknown or Not Available. Encounters Encounter Diagnosis Diagnosis Code Start Date Encounter for other specified aftercare [id number] 09/26/2021 Social History Smoking Status Code Start Date End Date Never smoker 763326995 Patient Decision Aids Unknown or Not Available. Discharge Instructions You were admitted to [facility] on 09/26/2021 13:57 with a principal diagnosis of Encounter for other specified aftercare You were discharged from [facility] on 09/26/2021 09:18 Should you have any questions prior to [...]
--- OUTSIDE RECORDS SUMMARY | 2023-03-01 12:27 | XMS_ITS | CCD ---
Author Name Unknown Address [address] [place] [address] [phone] Organization Unknown Address [address] [place] [address] [phone] Care Team Providers Care Mail Order Clerk Name Role Phone JOSE CALDWELL Attending Physician [phone] JOSE CALDWELL Rounding (Secondary) Physician [phone] Vital Signs Unknown or Not Available. Allergies Allergy Code Allergy Type Reaction Status AMPICILLIN 451276 Drug allergy Nausea, Vomiting Active CILLIN FAMILY VOMITING {Clin ical monitoring unavailable} 0 Drug allergy Nausea, Vomiting Active Procedures Unknown or Not Available. History of Immunizations Unknown or Not Available. Problems Problem Code Start Date Resolved Date Status Diabetes 85038778 Active Hypertension 73964535 Active CKD 577077895 Active Neuropathy 806293043 Active Infection of finger 173557992 Activ e Obesity 083030303 09/19/2022 Resolved Hypercholesterolemia 31008587 09/19/2022 Reso lved HTN 09803326 09/19/2022 Resolved Chronic pain syndrome 750096514 09/19/2022 Res olved Restless legs 86157745 09/19/2022 Resolved Lumbar radiculopathy 435129335 09/19/2022 Reso lved Cervicalgia 49677552 09/19/2022 Resolved Anxiety 84296391 09/19/2022 Resolved GERD 537570174 09/19/2022 Resolved Dupuytrens contracture 277313617 09/19/2022 Re solved Bilateral carpal tunnel syndrome 83232554475071832 09/19/2022 Resolved DJD 636857858 09/19/2022 Resolved Hypothyroidism 84465277 09/19/2022 Resolved Diabetes 2 78221652 09/19/2022 Resolved HLD 07804487 09/19/2022 Resolved CKD 704358509 09/19/2022 Resolved Results Unknown or Not Available. Active Medications Unknown or Not Available. Medications Administered During Visit Unknown or Not Available. Encounters Encounter Diagnosis Diagnosis Code Start Date Idiopathic osteoarthritis 860857258 2022 Social History Smoking Status Code Start Date End Date Never smoker 759381274 Patient Decision Aids Unknown or Not Available. Discharge Instructions You were admitted to [facility] on 03/22/2022 00:00 with a principal diagnosis of Bilateral primary osteoarthritis of knee You were discharged from [facility] on 03/22/2022 00:00 Should you have any questions prior [...]
--- OUTSIDE RECORDS SUMMARY | 2023-03-01 12:27 | XMS_ITS | CCD ---
Author Name Unknown Address [address] [place] [address] [id number] Organization Unknown Address [address] [place] [address] [phone] Care Team Providers Care Cable Installer Name Role Phone RUSTAM GONG Buzz Attending Physician [phone] Vital Signs Unknown or Not Available. Allergies Allergy Code Allergy Type Reaction Status AMPICILLIN 709066 Drug allergy Nausea, Vomiting Active CILLIN FAMILY VOMITING {Clin ical monitoring unavailable} 0 Drug allergy Nausea, Vomiting Active Procedures Unknown or Not Available. History of Immunizations Unknown or Not Available. Problems Problem Code Start Date Resolved Date Status Diabetes 89552059 Active Hypertension 59463230 Active CKD 956501692 Active Neuropathy 973272625 Active Infection of finger 266228790 Activ e Obesity 761635510 09/19/2022 Resolved Hypercholesterolemia 66017112 09/19/2022 Reso lved HTN 80898568 09/19/2022 Resolved Chronic pain syndrome 901577495 09/19/2022 Res olved Restless legs 11501417 09/19/2022 Resolved Lumbar radiculopathy 798637823 09/19/2022 Reso lved Cervicalgia 10107386 09/19/2022 Resolved Anxiety 99988956 09/19/2022 Resolved GERD 983283831 09/19/2022 Resolved Dupuytrens contracture 982095538 09/19/2022 Re solved Bilateral carpal tunnel syndrome 28013008144923710 09/19/2022 Resolved DJD 330874676 09/19/2022 Resolved Hypothyroidism 00025586 09/19/2022 Resolved Diabetes 2 75121631 09/19/2022 Resolved HLD 11434531 09/19/2022 Resolved CKD 320444683 09/19/2022 Resolved Results Unknown or Not Available. Active Medications Unknown or Not Available. Medications Administered During Visit Unknown or Not Available. Encounters Encounter Diagnosis Diagnosis Code Start Date Encounter for other specified aftercare [id number] 03/20/2022 Social History Smoking Status Code Start Date End Date Never smoker 242116656 Patient Decision Aids Unknown or Not Available. Discharge Instructions You were admitted to [facility] on 03/20/2022 09:53 with a principal diagnosis of Encounter for other specified aftercare You were discharged from [facility] on 03/20/2022 09:57 Should you have any questions prior to [...]
--- OUTSIDE RECORDS SUMMARY | 2023-03-01 12:27 | XMS_ITS | CCD ---
Author Name Unknown Address [address] [place] [address] [phone] Organization Unknown Address [address] [place] [address] [id number] Care Team Providers Care Manager Organizational Name Role Phone JOSE CALDWELL Attending Physician [phone] JOSE CALDWELL Rounding (Secondary) Physician [phone] Vital Signs Unknown or Not Available. Allergies Allergy Code Allergy Type Reaction Status AMPICILLIN 638204 Drug allergy Nausea, Vomiting Active CILLIN FAMILY VOMITING {Clin ical monitoring unavailable} 0 Drug allergy Nausea, Vomiting Active Procedures Unknown or Not Available. History of Immunizations Unknown or Not Available. Problems Problem Code Start Date Resolved Date Status Diabetes 80192714 Active Hypertension 57529816 Active CKD 393698471 Active Neuropathy 066707469 Active Infection of finger 849358792 Activ e Obesity 961899237 09/19/2022 Resolved Hypercholesterolemia 22700406 09/19/2022 Reso lved HTN 98040451 09/19/2022 Resolved Chronic pain syndrome 566978531 09/19/2022 Res olved Restless legs 29848402 09/19/2022 Resolved Lumbar radiculopathy 799248601 09/19/2022 Reso lved Cervicalgia 94552904 09/19/2022 Resolved Anxiety 46457533 09/19/2022 Resolved GERD 043261425 09/19/2022 Resolved Dupuytrens contracture 161681050 09/19/2022 Re solved Bilateral carpal tunnel syndrome 53172996854537442 09/19/2022 Resolved DJD 820750990 09/19/2022 Resolved Hypothyroidism 34913525 09/19/2022 Resolved Diabetes 2 23399779 09/19/2022 Resolved HLD 90612524 09/19/2022 Resolved CKD 260913473 09/19/2022 Resolved Results Unknown or Not Available. Active Medications Unknown or Not Available. Medications Administered During Visit Unknown or Not Available. Encounters Encounter Diagnosis Diagnosis Code Start Date Idiopathic osteoarthritis [id number] 2021 Social History Smoking Status Code Start Date End Date Never smoker 656585294 Patient Decision Aids Unknown or Not Available. Discharge Instructions You were admitted to [facility] on 09/28/2021 11:57 with a principal diagnosis of Bilateral primary osteoarthritis of knee You were discharged from [facility] on 09/28/2021 00:00 Should you have any questions prior [...]
--- OUTSIDE RECORDS SUMMARY | 2023-03-01 12:27 | XMS_ITS | CCD ---
Author Name Unknown Address [address] [place] [address] [id number] Organization Unknown Address [address] [place] [address] [phone] Care Team Providers Care Launch Steward Name Role Phone RUSTAM GONG Buzz Attending Physician [phone] Vital Signs Unknown or Not Available. Allergies Allergy Code Allergy Type Reaction Status AMPICILLIN 686721 Drug allergy Nausea, Vomiting Active CILLIN FAMILY VOMITING {Clin ical monitoring unavailable} 0 Drug allergy Nausea, Vomiting Active Procedures Unknown or Not Available. History of Immunizations Unknown or Not Available. Problems Problem Code Start Date Resolved Date Status Diabetes 15009303 Active Hypertension 39969856 Active CKD 264727115 Active Neuropathy 936095183 Active Infection of finger 754642060 Activ e Obesity 420999766 09/19/2022 Resolved Hypercholesterolemia 38475445 09/19/2022 Reso lved HTN 95113599 09/19/2022 Resolved Chronic pain syndrome 586358776 09/19/2022 Res olved Restless legs 69061038 09/19/2022 Resolved Lumbar radiculopathy 538214995 09/19/2022 Reso lved Cervicalgia 91644883 09/19/2022 Resolved Anxiety 29301028 09/19/2022 Resolved GERD 209287768 09/19/2022 Resolved Dupuytrens contracture 516348389 09/19/2022 Re solved Bilateral carpal tunnel syndrome 39662187432192713 09/19/2022 Resolved DJD 723979002 09/19/2022 Resolved Hypothyroidism 22888012 09/19/2022 Resolved Diabetes 2 29308267 09/19/2022 Resolved HLD 80082658 09/19/2022 Resolved CKD 149929848 09/19/2022 Resolved Results Unknown or Not Available. Active Medications Unknown or Not Available. Medications Administered During Visit Unknown or Not Available. Encounters Encounter Diagnosis Diagnosis Code Start Date Encounter for other specified aftercare [id number] 01/16/2022 Social History Smoking Status Code Start Date End Date Never smoker 712925075 Patient Decision Aids Unknown or Not Available. Discharge Instructions You were admitted to [facility] on 01/16/2022 10:09 with a principal diagnosis of Encounter for other specified aftercare You were discharged from [facility] on 01/16/2022 15:53 Should you have any questions prior to [...]
--- OUTSIDE RECORDS SUMMARY | 2023-03-01 12:27 | XMS_ITS | CCD ---
Author Name Unknown Address [address] [place] [address] [id number] Organization Unknown Address [address] [place] [address] [phone] Care Team Providers Care Insole Bottom Filler Name Role Phone RUSTAM GONG Buzz Attending Physician [phone] Vital Signs Unknown or Not Available. Allergies Allergy Code Allergy Type Reaction Status AMPICILLIN 127149 Drug allergy Nausea, Vomiting Active CILLIN FAMILY VOMITING {Clin ical monitoring unavailable} 0 Drug allergy Nausea, Vomiting Active Procedures Unknown or Not Available. History of Immunizations Unknown or Not Available. Problems Problem Code Start Date Resolved Date Status Diabetes 90349906 Active Hypertension 78432146 Active CKD 192613482 Active Neuropathy 921540141 Active Infection of finger 970599044 Activ e Obesity 444913101 09/19/2022 Resolved Hypercholesterolemia 63206697 09/19/2022 Reso lved HTN 79920222 09/19/2022 Resolved Chronic pain syndrome 758752556 09/19/2022 Res olved Restless legs 65420708 09/19/2022 Resolved Lumbar radiculopathy 971327231 09/19/2022 Reso lved Cervicalgia 28963572 09/19/2022 Resolved Anxiety 63482019 09/19/2022 Resolved GERD 107415076 09/19/2022 Resolved Dupuytrens contracture 803260679 09/19/2022 Re solved Bilateral carpal tunnel syndrome 44231538518690972 09/19/2022 Resolved DJD 542021897 09/19/2022 Resolved Hypothyroidism 64038379 09/19/2022 Resolved Diabetes 2 69812036 09/19/2022 Resolved HLD 39503682 09/19/2022 Resolved CKD 451601307 09/19/2022 Resolved Results Unknown or Not Available. Active Medications Unknown or Not Available. Medications Administered During Visit Unknown or Not Available. Encounters Encounter Diagnosis Diagnosis Code Start Date Encounter for other specified aftercare [id number] 07/27/2021 Social History Smoking Status Code Start Date End Date Never smoker 641803672 Patient Decision Aids Unknown or Not Available. Discharge Instructions You were admitted to [facility] on 07/27/2021 11:15 with a principal diagnosis of Encounter for other specified aftercare You were discharged from [facility] on 07/27/2021 14:51 Should you have any questions prior to [...]
--- OUTSIDE RECORDS SUMMARY | 2023-03-01 12:27 | XMS_ITS | CCD ---
Author Name Unknown Address [address] [place] [address] [phone] Organization Unknown Address [address] [place] [address] [phone] Care Team Providers Care Pre School Manager Name Role Phone RUSTAM GONG Buzz Attending Physician [phone] Vital Signs Unknown or Not Available. Allergies Allergy Code Allergy Type Reaction Status AMPICILLIN 217164 Drug allergy Nausea, Vomiting Active CILLIN FAMILY VOMITING {Clin ical monitoring unavailable} 0 Drug allergy Nausea, Vomiting Active Procedures Unknown or Not Available. History of Immunizations Unknown or Not Available. Problems Problem Code Start Date Resolved Date Status Diabetes 60293966 Active Hypertension 46779845 Active CKD 885468783 Active Neuropathy 132142194 Active Infection of finger 926875083 Activ e Obesity 893759400 09/19/2022 Resolved Hypercholesterolemia 30302399 09/19/2022 Reso lved HTN 48619219 09/19/2022 Resolved Chronic pain syndrome 721723573 09/19/2022 Res olved Restless legs 89047118 09/19/2022 Resolved Lumbar radiculopathy 272583010 09/19/2022 Reso lved Cervicalgia 35886032 09/19/2022 Resolved Anxiety 21147787 09/19/2022 Resolved GERD 804340091 09/19/2022 Resolved Dupuytrens contracture 705488621 09/19/2022 Re solved Bilateral carpal tunnel syndrome 82557940319022205 09/19/2022 Resolved DJD 482546805 09/19/2022 Resolved Hypothyroidism 53954555 09/19/2022 Resolved Diabetes 2 84528319 09/19/2022 Resolved HLD 36673983 09/19/2022 Resolved CKD 278664878 09/19/2022 Resolved Results Unknown or Not Available. Active Medications Unknown or Not Available. Medications Administered During Visit Unknown or Not Available. Encounters Encounter Diagnosis Diagnosis Code Start Date Encounter for other specified aftercare [id number] 05/22/2022 Social History Smoking Status Code Start Date End Date Never smoker 974653825 Patient Decision Aids Unknown or Not Available. Discharge Instructions You were admitted to [facility] on 05/22/2022 10:47 with a principal diagnosis of Encounter for other specified aftercare You were discharged from [facility] on 05/22/2022 10:52 Should you have any questions prior to [...]
--- OUTSIDE RECORDS SUMMARY | 2023-03-01 12:27 | XMS_ITS | CCD ---
Author Name Unknown Address [address] [place] [address] [id number] Organization Unknown Address [address] [place] [address] [phone] Care Team Providers Care Tube Mill Operator Name Role Phone LEENA LOPEZ Attending Physician [phone] Vital Signs Unknown or Not Available. Allergies Allergy Code Allergy Type Reaction Status AMPICILLIN 970471 Drug allergy Nausea, Vomiting Active CILLIN FAMILY VOMITING {Clin ical monitoring unavailable} 0 Drug allergy Nausea, Vomiting Active Procedures Unknown or Not Available. History of Immunizations Unknown or Not Available. Problems Problem Code Start Date Resolved Date Status Diabetes 47142769 Active Hypertension 60919914 Active CKD 031332404 Active Neuropathy 701141023 Active Infection of finger 158259463 Activ e Obesity 514241832 09/19/2022 Resolved Hypercholesterolemia 34669640 09/19/2022 Reso lved HTN 28996658 09/19/2022 Resolved Chronic pain syndrome 543559036 09/19/2022 Res olved Restless legs 80114472 09/19/2022 Resolved Lumbar radiculopathy 336804256 09/19/2022 Reso lved Cervicalgia 85772803 09/19/2022 Resolved Anxiety 29085720 09/19/2022 Resolved GERD 090818300 09/19/2022 Resolved Dupuytrens contracture 089572934 09/19/2022 Re solved Bilateral carpal tunnel syndrome 34679395192530160 09/19/2022 Resolved DJD 695161332 09/19/2022 Resolved Hypothyroidism 65835103 09/19/2022 Resolved Diabetes 2 81262310 09/19/2022 Resolved HLD 17888713 09/19/2022 Resolved CKD 967871498 09/19/2022 Resolved Results Unknown or Not Available. Active Medications Unknown or Not Available. Medications Administered During Visit Unknown or Not Available. Encounters Encounter Diagnosis Diagnosis Code Start Date Type 2 diabetes mellitus wit h diabetic chronic kidney disease E1122 02/15/2022 Social History Smoking Status Code Start Date End Date Never smoker 827785415 Patient Decision Aids Unknown or Not Available. Discharge Instructions You were admitted to [facility] on 02/15/2022 15:10 with a principal diagnosis of Type 2 diabetes mellitus with diabetic chronic kidney disease You were discharged from [facility] on 02/15/2022 15:10 Should you have any questions prior to discharge, please contact a member of your healthcare team. If you have left the hospital and have any questions, please contact your primary care physician. Chief Complaint and Reason For Visit Chief Complaint Date of Onset CHRONIC KIDNEY DISEASE Function Status Unknown or Not Available. Plan of Care Unknown or Not Available. Referral/Transition of Care Unknown or Not Available.
--- OUTSIDE RECORDS SUMMARY | 2023-03-01 12:28 | XMS_ITS | CCD ---
Author Name Unknown Address [address] [place] [address] [id number] Organization Unknown Address [address] [place] [address] [phone] Care Team Providers Care Receiving Teller Name Role Phone JOSE CALDWELL Attending Physician [phone] JOSE CALDWELL Rounding (Secondary) Physician [phone] Vital Signs Unknown or Not Available. Allergies Allergy Code Allergy Type Reaction Status AMPICILLIN 057377 Drug allergy Nausea, Vomiting Active CILLIN FAMILY VOMITING {Clin ical monitoring unavailable} 0 Drug allergy Nausea, Vomiting Active Procedures Unknown or Not Available. History of Immunizations Unknown or Not Available. Problems Problem Code Start Date Resolved Date Status Diabetes 50191626 Active Hypertension 10124217 Active CKD 193781980 Active Neuropathy 071125355 Active Infection of finger 813337680 Activ e Obesity 465283435 09/19/2022 Resolved Hypercholesterolemia 06495498 09/19/2022 Reso lved HTN 03060136 09/19/2022 Resolved Chronic pain syndrome 347659177 09/19/2022 Res olved Restless legs 91615208 09/19/2022 Resolved Lumbar radiculopathy 825251077 09/19/2022 Reso lved Cervicalgia 18396515 09/19/2022 Resolved Anxiety 38654079 09/19/2022 Resolved GERD 209683316 09/19/2022 Resolved Dupuytrens contracture 048179952 09/19/2022 Re solved Bilateral carpal tunnel syndrome 47437432940379727 09/19/2022 Resolved DJD 849070381 09/19/2022 Resolved Hypothyroidism 44442311 09/19/2022 Resolved Diabetes 2 77337358 09/19/2022 Resolved HLD 67265179 09/19/2022 Resolved CKD 628233666 09/19/2022 Resolved Results Unknown or Not Available. Active Medications Unknown or Not Available. Medications Administered During Visit Unknown or Not Available. Encounters Encounter Diagnosis Diagnosis Code Start Date Idiopathic osteoarthritis [id number] 2021 Social History Smoking Status Code Start Date End Date Never smoker 706096837 Patient Decision Aids Unknown or Not Available. Discharge Instructions You were admitted to [facility] on 06/08/2021 12:04 with a principal diagnosis of Bilateral primary osteoarthritis of knee You were discharged from [facility] on 06/08/2021 00:00 Should you have any questions prior [...]
[2023-03-01 15:01] LABS: Abs Immature Grans 0.02 10^3/uL (0.0-0.06); Absolute Basophil Count 0.03 10^3/uL (0.0-0.2); Absolute Eosinophil Count 0.15 10^3/uL (0.0-0.7); Absolute Lymphocyte Count 2.24 10^3/uL (1.2-3.4); Absolute Monocyte Count 0.58 10^3/uL (0.1-0.8); Absolute Neutrophil Count 3.06 10^3/uL (1.2-6.7); Basophils % 0.5; Eosinophils % 2.5; HCT 42.6 % (36.0-46.0); Immature Grans % 0.3; Lymphocytes % 36.8; MCH 27.6 pg (27.0-33.0); MCHC 32.9 % (32.0-36.0); MCV 84 fL (80-95); Monocytes % 9.5; Neutrophils % 50.4; Platelet Count 253 10^3/uL (130-400); RBC 5.08 10^6/uL (3.93-5.22); RDW 13.4 % (11.7-14.6); RDW-SD 41.3 fL; WBC 6.08 10^3/uL (4.4-10.8)
[2023-03-01 15:29] LABS: ALT 28 U/L (14-59); AST 30 U/L (15-37); Albumin 3.2 g/dL (3.4-5.0); Alkaline Phosphatase 124 U/L (46-116); Anion Gap 8.1 mmol/L (3-11); BUN 28 mg/dL (7-18); Bilirubin, Total 0.6 mg/dL (0.2-1.0); CO2 27.9 mmol/L (21.0-32.0); CREATININE 1.7 mg/dL (0.55-1.02); Calcium 9.3 mg/dL (8.5-10.1); Calculated LDL 50 mg/dL (<100); Chloride 104 mmol/L (98-107); Cholesterol 131 mg/dL (<200); Estimated GFR 31.27 (mL/min/1.73m2); Glucose 191 mg/dL (74-106); HDL Cholesterol 44 mg/dL (40-60); Potassium 3.5 mmol/L (3.5-5.1); Sodium 140 mmol/L (136-145); Total Protein 7.1 g/dL (6.4-8.2); Triglyceride 185 mg/dL (<150)
[2023-03-01 15:39] LABS: Hemoglobin A1C 6.4 % (<5.7)
[2023-03-01 16:01] LABS: Creatine Kinase 302 U/L (26-192); Uric Acid 5.8 mg/dL (2.6-6.0)
== END 2023-03-01 12:24 | disposition home or self-care (01) ==
LOC: LBN 12:23
PROVIDERS: PCP Family Medicine; Visit Provider Nurse Practitioner Family
DX: M79.10 Myalgia, unspecified site (principal); M10.9 Gout, unspecified; E11.65 Type 2 diabetes mellitus with hyperglycemia; Z79.4 Long term (current) use of insulin
CPT/HCPCS: 80053; 80061; 82550; 83036; 84550; 85025

== ENCOUNTER 2023-03-29 12:17 | Outpatient (REF) | payer MEDICARE, OTHER, SELFPAY ==
[2023-03-29 15:04] LABS: Abs Immature Grans 0.01 10^3/uL (0.0-0.06); Absolute Basophil Count 0.03 10^3/uL (0.0-0.2); Absolute Eosinophil Count 0.12 10^3/uL (0.0-0.7); Absolute Lymphocyte Count 1.98 10^3/uL (1.2-3.4); Absolute Neutrophil Count 2.57 10^3/uL (1.2-6.7); Basophils % 0.6; Eosinophils % 2.3; HCT 40.4 % (36.0-46.0); HGB 13.3 g/dL (11.2-15.7); Immature Grans % 0.2; MCH 27.4 pg (27.0-33.0); MCHC 32.9 % (32.0-36.0); MCV 83 fL (80-95); MPV 10.7 fL (8.0-11.0); Monocytes % 9.6; Neutrophils % 49.3; Platelet Count 238 10^3/uL (130-400); RBC 4.85 10^6/uL (3.93-5.22); RDW 13.9 % (11.7-14.6); RDW-SD 42.2 fL; WBC 5.21 10^3/uL (4.4-10.8)
[2023-03-29 15:19] LABS: ALT 22 U/L (14-59); AST 35 U/L (15-37); Albumin 3.2 g/dL (3.4-5.0); Alkaline Phosphatase 112 U/L (46-116); Anion Gap 8.2 mmol/L (3-11); BUN 29 mg/dL (7-18); Bilirubin, Total 0.7 mg/dL (0.2-1.0); CO2 28.8 mmol/L (21.0-32.0); CREATININE 1.7 mg/dL (0.55-1.02); Calcium 9.5 mg/dL (8.5-10.1); Chloride 105 mmol/L (98-107); Estimated GFR 31.27 (mL/min/1.73m2); Glucose 164 mg/dL (74-106); Sodium 142 mmol/L (136-145)
== END 2023-03-29 12:18 | disposition home or self-care (01) ==
LOC: NCHCN 12:17
PROVIDERS: PCP Family Medicine; Referring Provider Family Medicine; Visit Provider Internal Medicine Rheumatology
DX: M10.9 Gout, unspecified (principal)
CPT/HCPCS: 80053; 84550; 85025

== ENCOUNTER 2023-04-23 11:34 | Outpatient (REF) | payer MEDICARE, OTHER, SELFPAY ==
[2023-04-23 15:33] LABS: COMMENT (LAB VIEW ONLY) 129.65 mg/dL; Microalb ug/mg Crea 11.3 ug/mg Cr
[2023-04-23 15:42] LABS: Abs Immature Grans 0.01 10^3/uL (0.0-0.06); Absolute Basophil Count 0.04 10^3/uL (0.0-0.2); Absolute Eosinophil Count 0.14 10^3/uL (0.0-0.7); Absolute Lymphocyte Count 2.01 10^3/uL (1.2-3.4); Absolute Monocyte Count 0.56 10^3/uL (0.1-0.8); Absolute Neutrophil Count 2.59 10^3/uL (1.2-6.7); Basophils % 0.7; Eosinophils % 2.6; HCT 39.8 % (36.0-46.0); HGB 12.9 g/dL (11.2-15.7); Immature Grans % 0.2; Lymphocytes % 37.6; MCH 27.5 pg (27.0-33.0); MCHC 32.4 % (32.0-36.0); MCV 85 fL (80-95); MPV 11.1 fL (8.0-11.0); Monocytes % 10.5; Neutrophils % 48.4; Platelet Count 245 10^3/uL (130-400); RBC 4.69 10^6/uL (3.93-5.22); RDW 14.3 % (11.7-14.6); RDW-SD 43.9 fL; WBC 5.35 10^3/uL (4.4-10.8)
[2023-04-23 15:50] LABS: Calculated LDL 44 mg/dL (<100); Cholesterol 119 mg/dL (<200); HDL Cholesterol 39 mg/dL (40-60); Triglyceride 181 mg/dL (<150)
[2023-04-23 15:51] LABS: ALT 23 U/L (14-59); AST 32 U/L (15-37); Albumin 3.3 g/dL (3.4-5.0); Alkaline Phosphatase 109 U/L (46-116); Anion Gap 7.1 mmol/L (3-11); BUN 31 mg/dL (7-18); Bilirubin, Total 0.6 mg/dL (0.2-1.0); CO2 29.9 mmol/L (21.0-32.0); CREATININE 1.7 mg/dL (0.55-1.02); Calcium 9.3 mg/dL (8.5-10.1); Chloride 106 mmol/L (98-107); Estimated GFR 31.08 (mL/min/1.73m2); Glucose 72 mg/dL (74-106); Potassium 3.9 mmol/L (3.5-5.1); Sodium 143 mmol/L (136-145); Total Protein 7.2 g/dL (6.4-8.2); Uric Acid 5.3 mg/dL (2.6-6.0)
[2023-04-23 16:12] LABS: Vitamin D 25 Total 41.8 ng/mL (30-100)
[2023-04-23 16:19] LABS: Hemoglobin A1C 6.4 % (<5.7)
[2023-04-23 16:22] LABS: PHOSPHORUS 4.1 mg/dL (2.6-4.7)
[2023-04-23 22:57] LABS: Parathyroid Hormone,Intact 38 pg/mL (19-88)
== END 2023-04-23 11:35 | disposition home or self-care (01) ==
LOC: LBN 11:34
PROVIDERS: Internal Medicine; Nurse Practitioner Family; PCP Family Medicine; Visit Provider Internal Medicine Rheumatology
DX: E11.65 Type 2 diabetes mellitus with hyperglycemia (principal); I10 Essential (primary) hypertension; N18.4 Chronic kidney disease, stage 4 (severe); M10.9 Gout, unspecified; Z79.4 Long term (current) use of insulin
CPT/HCPCS: 80053; 80061; 80069; 82306; 82043; 82570; 83036; 83970; 84100; 84550; 85025

== ENCOUNTER 2023-05-22 14:34 | Outpatient (REF) | payer MEDICARE, OTHER, SELFPAY ==
[2023-05-22 15:20] LABS: Abs Immature Grans 0.01 10^3/uL (0.0-0.06); Absolute Basophil Count 0.03 10^3/uL (0.0-0.2); Absolute Eosinophil Count 0.14 10^3/uL (0.0-0.7); Absolute Monocyte Count 0.36 10^3/uL (0.1-0.8); Absolute Neutrophil Count 2.45 10^3/uL (1.2-6.7); Basophils % 0.6; Eosinophils % 2.8; HCT 43.5 % (36.0-46.0); HGB 13.7 g/dL (11.2-15.7); Immature Grans % 0.2; Lymphocytes % 41.3; MCH 27.6 pg (27.0-33.0); MCHC 31.5 % (32.0-36.0); MCV 88 fL (80-95); MPV 11.3 fL (8.0-11.0); Monocytes % 7.1; Platelet Count 256 10^3/uL (130-400); RBC 4.96 10^6/uL (3.93-5.22); RDW 14.1 % (11.7-14.6); RDW-SD 45.1 fL; WBC 5.09 10^3/uL (4.4-10.8)
[2023-05-22 15:34] LABS: ALT 24 U/L (14-59); AST 36 U/L (15-37); Albumin 3.5 g/dL (3.4-5.0); Alkaline Phosphatase 106 U/L (46-116); Anion Gap 8.3 mmol/L (3-11); BUN 28 mg/dL (7-18); Bilirubin, Total 0.7 mg/dL (0.2-1.0); CO2 30.7 mmol/L (21.0-32.0); CREATININE 1.7 mg/dL (0.55-1.02); Calcium 9.3 mg/dL (8.5-10.1); Chloride 106 mmol/L (98-107); Estimated GFR 31.08 (mL/min/1.73m2); Glucose 73 mg/dL (74-106); Potassium 3.6 mmol/L (3.5-5.1); Sodium 145 mmol/L (136-145); Total Protein 7.5 g/dL (6.4-8.2); Uric Acid 5.4 mg/dL (2.6-6.0)
== END 2023-05-22 14:35 | disposition home or self-care (01) ==
LOC: LBN 14:34
PROVIDERS: PCP Family Medicine; Visit Provider Internal Medicine Rheumatology
DX: M10.9 Gout, unspecified (principal)
CPT/HCPCS: 80053; 84550; 85025

== ENCOUNTER 2023-06-14 14:48 | Outpatient (REF) | payer MEDICARE, OTHER, SELFPAY ==
[2023-06-14 21:45] LABS: TSH 1.68 uIU/Ml (0.36-3.74)
== END 2023-06-14 14:49 | disposition home or self-care (01) ==
LOC: NCHCN 14:48
PROVIDERS: PCP Family Medicine; Visit Provider Family Medicine
DX: E03.9 Hypothyroidism, unspecified (principal); M10.9 Gout, unspecified
CPT/HCPCS: 84443

== ENCOUNTER 2023-06-14 21:06 | Outpatient (REF) | payer MEDICARE, OTHER, SELFPAY ==
[2023-06-14 21:49] LABS: Abs Immature Grans 0.01 10^3/uL (0.0-0.06); Absolute Basophil Count 0.04 10^3/uL (0.0-0.2); Absolute Eosinophil Count 0.13 10^3/uL (0.0-0.7); Absolute Lymphocyte Count 2.09 10^3/uL (1.2-3.4); Absolute Monocyte Count 0.73 10^3/uL (0.1-0.8); Absolute Neutrophil Count 3.95 10^3/uL (1.2-6.7); Basophils % 0.6; Eosinophils % 1.9; HCT 43.9 % (36.0-46.0); HGB 14.3 g/dL (11.2-15.7); Immature Grans % 0.1; Lymphocytes % 30.1; MCH 28.3 pg (27.0-33.0); MCHC 32.6 % (32.0-36.0); MCV 87 fL (80-95); Monocytes % 10.5; Neutrophils % 56.8; Platelet Count 232 10^3/uL (130-400); RBC 5.05 10^6/uL (3.93-5.22); RDW 13.9 % (11.7-14.6); RDW-SD 44.5 fL; WBC 6.95 10^3/uL (4.4-10.8)
[2023-06-14 22:06] LABS: ALT 32 U/L (14-59); AST 28 U/L (15-37); Albumin 3.4 g/dL (3.4-5.0); Alkaline Phosphatase 134 U/L (46-116); Anion Gap 8.9 mmol/L (3-11); BUN 28 mg/dL (7-18); Bilirubin, Total 0.7 mg/dL (0.2-1.0); CO2 28.1 mmol/L (21.0-32.0); CREATININE 1.6 mg/dL (0.55-1.02); Calcium 8.7 mg/dL (8.5-10.1); Chloride 105 mmol/L (98-107); Estimated GFR 33.42 (mL/min/1.73m2); Glucose 93 mg/dL (74-106); Potassium 3.9 mmol/L (3.5-5.1); Sodium 142 mmol/L (136-145); Total Protein 7.1 g/dL (6.4-8.2); Uric Acid 5.3 mg/dL (2.6-6.0)
== END 2023-06-14 21:07 | disposition home or self-care (01) ==
LOC: LBN 21:06
PROVIDERS: PCP Family Medicine; Visit Provider Internal Medicine Rheumatology
DX: M10.9 Gout, unspecified (principal)
CPT/HCPCS: 80053; 84550; 85025

== ENCOUNTER 2023-08-13 15:45 | Outpatient (REF) | payer MEDICARE, OTHER, SELFPAY ==
[2023-08-13 15:46] LABS: Abs Immature Grans 0.01 10^3/uL (0.0-0.06); Absolute Basophil Count 0.04 10^3/uL (0.0-0.2); Absolute Eosinophil Count 0.13 10^3/uL (0.0-0.7); Absolute Lymphocyte Count 1.82 10^3/uL (1.2-3.4); Absolute Monocyte Count 0.41 10^3/uL (0.1-0.8); Absolute Neutrophil Count 2.57 10^3/uL (1.2-6.7); Basophils % 0.8 %; Eosinophils % 2.6 %; HCT 42.6 % (36.0-46.0); HGB 13.7 g/dL (11.2-15.7); Immature Grans % 0.2 %; Lymphocytes % 36.5 %; MCH 28.3 pg (27.0-33.0); MCHC 32.2 % (32.0-36.0); MCV 88 fL (80-95); MPV 11.1 fL (8.0-11.0); Monocytes % 8.2 %; Neutrophils % 51.7 %; Platelet Count 241 10^3/uL (130-400); RBC 4.84 10^6/uL (3.93-5.22); RDW 13.8 % (11.7-14.6); RDW-SD 44.4 fL; WBC 4.98 10^3/uL (4.4-10.8)
[2023-08-13 16:32] LABS: ALT 30 U/L (14-59); AST 39 U/L (15-37); Albumin 3.5 g/dL (3.4-5.0); Alkaline Phosphatase 113 U/L (46-116); Anion Gap 6.6 mmol/L (3-11); BUN 31 mg/dL (7-18); Bilirubin, Total 0.8 mg/dL (0.2-1.0); CO2 31.4 mmol/L (21.0-32.0); CREATININE 1.6 mg/dL (0.55-1.02); Calcium 9.7 mg/dL (8.5-10.1); Chloride 106 mmol/L (98-107); Creatine Kinase 476 U/L (26-192); Estimated GFR 33.42 (mL/min/1.73m2); Glucose 100 mg/dL (74-106); Potassium 4.2 mmol/L (3.5-5.1); Sodium 144 mmol/L (136-145); Total Protein 7.4 g/dL (6.4-8.2); Uric Acid 5.4 mg/dL (2.6-6.0)
== END 2023-08-13 15:46 | disposition home or self-care (01) ==
LOC: NCHCN 15:45
PROVIDERS: Internal Medicine Rheumatology; PCP Family Medicine; Visit Provider Family Medicine
DX: M10.9 Gout, unspecified (principal); M79.10 Myalgia, unspecified site
CPT/HCPCS: 80053; 82550; 84550; 85025

== ENCOUNTER 2023-09-11 14:23 | Outpatient (REF) | payer MEDICARE, OTHER, SELFPAY ==
[2023-09-11 16:06] LABS: Abs Immature Grans 0.02 10^3/uL (0.0-0.06); Absolute Basophil Count 0.02 10^3/uL (0.0-0.2); Absolute Eosinophil Count 0.13 10^3/uL (0.0-0.7); Absolute Lymphocyte Count 1.81 10^3/uL (1.2-3.4); Absolute Monocyte Count 0.48 10^3/uL (0.1-0.8); Absolute Neutrophil Count 2.74 10^3/uL (1.2-6.7); Basophils % 0.4 %; Eosinophils % 2.5 %; HCT 42.9 % (36.0-46.0); HGB 13.8 g/dL (11.2-15.7); Immature Grans % 0.4 %; Lymphocytes % 34.8 %; MCH 28.3 pg (27.0-33.0); MCHC 32.2 % (32.0-36.0); MCV 88 fL (80-95); Monocytes % 9.2 %; Neutrophils % 52.7 %; Platelet Count 233 10^3/uL (130-400); RBC 4.88 10^6/uL (3.93-5.22); RDW 13.7 % (11.7-14.6)
[2023-09-11 16:39] LABS: ALT 30 U/L (14-59); AST 38 U/L (15-37); Albumin 3.5 g/dL (3.4-5.0); Alkaline Phosphatase 109 U/L (46-116); Anion Gap 7.4 mmol/L (3-11); BUN 27 mg/dL (7-18); Bilirubin, Total 0.71 mg/dL (0.2-1.0); CO2 29.6 mmol/L (21.0-32.0); CREATININE 1.8 mg/dL (0.55-1.02); Calcium 9.1 mg/dL (8.5-10.1); Chloride 105 mmol/L (98-107); Creatine Kinase 487 U/L (26-192); Estimated GFR 29.02 (mL/min/1.73m2); Glucose 126 mg/dL (74-106); Potassium 3.8 mmol/L (3.5-5.1); Sodium 142 mmol/L (136-145); Total Protein 7.2 g/dL (6.4-8.2); Uric Acid 5.8 mg/dL (2.6-6.0)
== END 2023-09-11 14:24 | disposition home or self-care (01) ==
LOC: LBN 14:23
PROVIDERS: Physician Assistant; PCP Family Medicine; Visit Provider Family Medicine
DX: M10.9 Gout, unspecified (principal); M79.10 Myalgia, unspecified site
CPT/HCPCS: 80053; 82550; 84550; 85025

== ENCOUNTER 2023-10-11 15:32 | Outpatient (REF) | payer MEDICARE, OTHER, SELFPAY ==
[2023-10-11 17:04] LABS: Creatine Kinase 563 U/L (26-192); TSH 1.75 uIU/Ml (0.36-3.74)
[2023-10-11 17:17] LABS: Uric Acid 5.6 mg/dL (2.6-6.0)
[2023-10-15 10:17] LABS: Aldolase 5.7 U/L (<7.7)
== END 2023-10-11 15:33 | disposition home or self-care (01) ==
LOC: LBN 15:32
PROVIDERS: PCP Family Medicine; Visit Provider Internal Medicine Rheumatology
DX: R74.8 Abnormal levels of other serum enzymes (principal)
CPT/HCPCS: 82550; 82085; 84443; 84550

== ENCOUNTER 2023-12-03 20:14 | Outpatient (REF) | payer MEDICARE, OTHER, SELFPAY ==
[2023-12-03 20:39] LABS: HCT 46.2 % (36.0-46.0); HGB 14.4 g/dL (11.2-15.7); MCH 28.1 pg (27.0-33.0); MCHC 31.2 % (32.0-36.0); MCV 90 fL (80-95); MPV 12.1 fL (8.0-11.0); Platelet Count 219 10^3/uL (130-400); RBC 5.13 10^6/uL (3.93-5.22); RDW 13.5 % (11.7-14.6); RDW-SD 44.5 fL; WBC 10.58 10^3/uL (4.4-10.8)
[2023-12-03 20:51] LABS: Albumin 3.6 g/dL (3.4-5.0); Anion Gap 7.8 mmol/L (3-11); BUN 42 mg/dL (7-18); CO2 30.2 mmol/L (21.0-32.0); CREATININE 1.7 mg/dL (0.55-1.02); Calcium 9.2 mg/dL (8.5-10.1); Chloride 102 mmol/L (98-107); Estimated GFR 31.08 (mL/min/1.73m2); Glucose 131 mg/dL (74-106); Potassium 4.1 mmol/L (3.5-5.1); Sodium 140 mmol/L (136-145)
[2023-12-03 21:04] LABS: Bilirubin Negative (Negative); Blood Negative (Negative); Clarity Clear (Clear); Glucose Negative (Negative); Ketones Negative (Negative); Leukocyte Esterase Trace (Negative); Nitrite Negative (Negative); Urobilinogen 0.2 mg/dL (Up to 0.2)
[2023-12-03 21:05] LABS: COMMENT (LAB VIEW ONLY) 98.39 mg/dL; Microalb ug/mg Crea 15.6 ug/mg Cr
[2023-12-03 21:17] LABS: Bacteria Rare HPF (Negative); Crystals Negative HPF (Negative); Epithelial Cells Many HPF (Negative); RBC 0-2 HPF (0-2)
[2023-12-03 21:18] LABS: C & S Indicated? No/Sq. Contamination; Casts Negative LPF (Negative); Mucus Negative (Negative)
[2023-12-12 23:23] LABS: PTH AB NEGATIVE (NEGATIVE)
== END 2023-12-03 20:15 | disposition home or self-care (01) ==
LOC: LBN 20:14
PROVIDERS: PCP Family Medicine; Visit Provider Internal Medicine
DX: N18.4 Chronic kidney disease, stage 4 (severe) (principal); Z79.899 Other long term (current) drug therapy; E11.21 Type 2 diabetes mellitus with diabetic nephropathy; M89.9 Disorder of bone, unspecified; E83.9 Disorder of mineral metabolism, unspecified
CPT/HCPCS: 80069; 83519; 85027; 81003; 81015; 82043; 82570

== ENCOUNTER 2024-01-13 18:31 | Outpatient (REF) | payer MEDICARE, OTHER, SELFPAY ==
[2024-01-13 21:54] LABS: ALT 24 U/L (14-59); AST 32 U/L (15-37); Albumin 3.5 g/dL (3.4-5.0); Alkaline Phosphatase 108 U/L (46-116); Anion Gap 6.6 mmol/L (3-11); BUN 32 mg/dL (7-18); Bilirubin, Total 0.72 mg/dL (0.2-1.0); CO2 32.4 mmol/L (21.0-32.0); CREATININE 1.8 mg/dL (0.55-1.02); Calcium 9.5 mg/dL (8.5-10.1); Chloride 107 mmol/L (98-107); Estimated GFR 29.02 (mL/min/1.73m2); Glucose 128 mg/dL (74-106); Potassium 4.7 mmol/L (3.5-5.1); Sodium 146 mmol/L (136-145); Total Protein 7.4 g/dL (6.4-8.2); Uric Acid 4.9 mg/dL (2.6-6.0)
== END 2024-01-13 18:32 | disposition home or self-care (01) ==
LOC: NCHCN 18:31
PROVIDERS: PCP Family Medicine; Visit Provider Family Medicine
DX: E11.29 Type 2 diabetes mellitus with other diabetic kidney complication (principal)
CPT/HCPCS: 80053; 84550

== ENCOUNTER 2024-04-21 22:36 | Outpatient (REF) | payer MEDICARE, OTHER, SELFPAY ==
[2024-04-21 22:58] LABS: HCT 41.8 % (36.0-46.0); HGB 13.4 g/dL (11.2-15.7); MCH 28.5 pg (27.0-33.0); MCHC 32.1 % (32.0-36.0); MCV 89 fL (80-95); MPV 11.4 fL (8.0-11.0); Platelet Count 223 10^3/uL (130-400); RBC 4.71 10^6/uL (3.93-5.22); RDW 13.4 % (11.7-14.6); RDW-SD 43.8 fL; WBC 5.19 10^3/uL (4.4-10.8)
[2024-04-21 23:09] LABS: COMMENT (LAB VIEW ONLY) 125.12 mg/dL
[2024-04-21 23:32] LABS: CREATININE 1.7 mg/dL (0.55-1.02); Estimated GFR 30.89 (mL/min/1.73m2); Vitamin D 25 Total 40.1 ng/mL (30-100)
[2024-04-22 20:19] LABS: Parathyroid Hormone,Intact 33.3 pg/mL (19.0-88.0)
== END 2024-04-21 22:37 | disposition home or self-care (01) ==
LOC: LBN 22:36
PROVIDERS: PCP Family Medicine; Visit Provider Internal Medicine
DX: N18.4 Chronic kidney disease, stage 4 (severe) (principal); I10 Essential (primary) hypertension
CPT/HCPCS: 82306; 85027; 82043; 82565; 82570; 83970

== ENCOUNTER 2024-07-14 15:48 | Outpatient (REF) | payer MEDICARE, OTHER, SELFPAY ==
[2024-07-14 22:15] LABS: TSH 1.68 uIU/mL (0.36-3.74)
== END 2024-07-14 15:49 | disposition home or self-care (01) ==
LOC: NCHCN 15:48
PROVIDERS: PCP Family Medicine; Visit Provider Family Medicine
DX: E03.9 Hypothyroidism, unspecified (principal)
CPT/HCPCS: 84443; 84550